=== PATIENT | female | born 1955 | race Caucasian/White ===

== ENCOUNTER 2024-10-15 09:59 | Outpatient (AMB) | payer MEDICARE, SELFPAY ==
--- NOTE | 2024-10-15 10:13 | A.OFFPC_ITS ---
Vital Signs 10/15/24 10:36 Height 5 ft 2 in Weight 143 lb BMI 26.2 BP 101/67 Blood Pressure Location Rt brachial Position Sitting Respiration 12 Pulse 88 Pulse Source Pulse Oximeter Temp 97.8 F Temp Source Oral Pulse Oximetry (%) 98 Oxygen Delivery Method Room Air Intake Visit Reasons: CPE Intake Note: New patient to establish care and cpe. [employer] Required: No Allergies acetaminophen [From Percocet] Allergy (Severe, Verified 10/15/24 11:08) Vomiting atorvastatin Allergy (Severe, Verified 10/15/24 11:08) Fainting ciprofloxacin Allergy (Severe, Verified 10/15/24 11:08) Fainting dicyclomine Allergy (Severe, Verified 10/15/24 11:08) Anaphylaxis morphine Allergy (Severe, Verified 10/15/24 11:08) Fainting oxycodone Allergy (Severe, Verified 10/15/24 11:08) Itching sertraline Allergy (Severe, Verified 10/15/24 11:08) Itching bee stings Allergy (Severe, Uncoded 10/15/24 10:32) Swelling Medication List - Last Reconciled 10/15/24 by Jody Lopes, [employer] albuterol sulfate 90 mcg/actuation inhalation kvapgrhjwcx-okuhsrqdz-mluampim 100-62.5-25 mcg (Trelegy Ellipta) 1 ea inhalation DAILY hyoscyamine sulfate 0.125 mg PO BID-QID PRN ibuprofen 200 mg PO Q6H lansoprazole 30 mg PO BID ondansetron 4 mg PO Q6-8H PRN pantoprazole 40 mg PO BID rosuvastatin 20 mg PO BEDTIME sucralfate mL PO Tobacco use date assessed: 10/15/24 Fall risk assessment: 2 + Falls in past year Last assessed Fall Risk: 10/15/24 Dental Screening Dental Screen Date: 10/15/24 Did you have a dental visit in the last 12 months?: No Did you have a dental problem in the last 6 months where you did not have access to dental care?: No Was dental information given to patient?: Patient has dentist HPI HPI Comments History of Present Illness Details 69 y/o F with HLD, GERD, COPD/Emphysema, GERD, chronic lumbar radiculopathy, hiatal hernia with esophagitis, Hx of PUD, AVI, Former smoker, bilat pulm nodules, mild CAD, osteoporosis, recurrent UTI SurgHx: coronary angiogram 2018, partial hysterectomy still has cervix and ovaries FHx: SocHx: Lives alone, dtr is point of contact; has services in the home Health Maintenance: Colon: 2021 + polyp, repeat 5 years EGD 2022 hiatal hernia, esophagitis Mammo 11/2023 abnormal Dx L normal, repeat 1 year DEXA PAP EDI ANALYST exam 12/2022 Vaccines: Shingles, PCV x2, Tdap 2022 AAA screen EKG: Lung ca screening done by [facility] Echo 2023 EF 60-65%, mild calcification of AV, [place] of Care: Pulm Dr Russ Bailey - hasnt been seen in ears Cards Dr Velásquez EDI ANALYST Here [facility] to [facility] care Previous PCP: Dr Elizabeth, no records at time of visit, but i was able to get records after and review them Reports recurrent UTI, she was ff'd by Uro Dr Bailey in the past, has not ff'd w/ Uro since her residential. Thinks she has a UTI now. Emphysema/COPD/Lung nodules/Former Smoker - ff'd closely q6 mo by Dr Baron. Last consult note reviewed. CAD/HLD - on statin. Active w/ Cards. GERD/Esophagitis/Hiatal hernia/PUD: managed by GI, EGD 2022, on PPI and Carafate. Not candidate for surgery for hiatal hernia Biggest complaint today is that of L left pain which she states has been present for years; she is not a great historian. [place] all of the time. Hurts with light touch. States has never had a workup for this. I reviewed her chart and she did have Venous Duplex 2022, negative for clot and Arterial testing which was normal 10/2023. [facility]. She has not had EMG/NVC. Offered to send her to Pain mgmt, she declined, wanting work up first. Feet are always cold on both sides Multiple falls. has not gone to PT recently and does not want to. Has help in the home. Self reports of Stroke - i did not get this in the records. She reports x 2. Affecting strength on L side of body. Has been using topical diclofenac and lidocaine for L leg pain w/o relief. Exam awake alert NAD Scleras nonicteric bilat MMM RRR LS CTAB Bilat feet cool to touch. Skin intact. Her L foot and leg are so sensitive to even the slightest touch she becomes tearful. I had a hard time appreciating her pulses on this side d/t this, she could not tolerate. PP on R are present but dim. Nails intact. Strengh 4/5 LLE and LUE, states baseline s/p stroke Amb w walker, antalgic gait/limp favoring L side Poor historian, pleasant and cooperative Plan Check labs EMG/NCV LLE and Vascular imaging of bilat legs Cont all meds and care w/ care team Refer to Uro for recurrent UTI RTO in 6 weeks for AWV, sooner PRN Total time spent caring for the patient today was 90 minutes. This includes time spent before the visit reviewing the chart, time spent during the visit, and time spent after the visit on documentation, reviewing laboratory results, diagnostic imaging, medications, performing a medically necessary evaluation, counseling on diagnoses, care coordination, ordering appropriate tests, ordering appropriate medications, review of tests performed by other providers, reporting test results with the patient, communication with other healthcare providers. [facility] Medical History (Updated 10/15/24 @ 13:39 by Jody Lopes, [facility]) Arthritis Back pain COPD (chronic obstructive pulmonary disease) Edema GERD (gastroesophageal reflux disease) History of coronary angiogram (~2017) Hx of mammogram (~2023) IBS (irritable bowel syndrome) Imbalance Osteoporosis Spine disorder Stroke Swelling Surgical History (Updated 10/15/24 @ 10:51 by Adriana Soni MA) H/O: hysterectomy Hx of colonoscopy (~2021) Family History (Updated 10/15/24 @ 10:54 by Adriana Soni MA) Mother Diabetes Thyroid disorder Maternal Grandmother Breast cancer Social History (Updated 10/15/24 @ 10:39 by Adriana Soni MA) Household Members: None Both parents involved: No Caregiver staying overnight: No Housing: Apartment Are you a primary career counselor to a significant other at home: No Do you presently have visiting nurse or other home services: Yes (3 x a week) 75 years or older and lives alone: No Alcohol intake: never Patient Tobacco Use Status: Former Tobacco user Cigarette Packs Per Day: 2 Years Smoked: 48 e-Cigarette/Vaping Use: Never Used Second Hand Smoke Exposure: No Current occupational status: retired Cognitive needs: No Hearing needs: No Vision needs: Yes (wear glasses) Questionnaire PHQ-9 Over the last 2 weeks, how often have you been bothered by any of the following problems? 1. Little interest or pleasure in doing things: not at all 2. Feeling down, depressed, or hopeless: not at all 3. Trouble falling or staying asleep, or sleeping too much: nearly every day 4. Feeling tired or having little energy: not at all 5. Poor appetite or overeating: several days 6. Feeling bad about yourself - or that you are a failure or have let yourself or your family down: not at all 7. Trouble concentrating on things, such as reading the newspaper or watching television: not at all 8. Moving or speaking so slowly that other people could have noticed. Or the opposite - being so fidgety or restless that you have been moving around a lot more than usual: not at all 9. Thoughts that you would be better off or of hurting yourself in some way: not at all Total score: 4 Depression Screening Interpretation: Negative Depression Screening Done: Yes 67860 - PHQ-9 Billing: Yes Source: Developed by Drs. Presley Chaudhari, Rosario Don, Sergey Jimenez and colleagues, with an educational araceli from [email or web address]. Thrive Questionnaire Date Thrive assessed: 10/15/24 I am a: Patient What is your living situation today?: I have a steady place to live Within the past 12 months, did the food you bought not last and you didn't have the money to get more?: Never true Within the past 12 months, did you worry whether your food would run out before you got money to buy more?: Never true Do you have trouble paying for medicines?: No Do you have trouble getting transportation to medical appointments?: No Do you have trouble paying your heating and electricity bill?: No Do you have trouble taking care of your child, family member or friend?: No Do you have trouble with day-to-day activities such as bathing, preparing meals, shopping, managing finances, etc.?: No Are you currently unemployed and looking for a job?: No Are you interested in more education?: No THRIVE Score: 0 AUDIT C Alcohol Use Questionnaire (AUDIT-C) 1. How often do you have a drink containing alcohol?: Never 3. How often do you have six or more drinks on one occasion?: Never Total Score: 0 Score Reviewed/Action Taken: Yes AVI-7 AMB Questionnaire AVI-7 Date AVI - 7 assessed: 10/15/24 Feeling nervous, anxious, or on edge: 0 = Not at all Not being able to stop or control worryin = Several days Worrying too much about different things: 0 = Not at all Trouble relaxin = Not at all Being so restless that it is hard to sit still: 0 = Not at all Becoming easily annoyed or irritable: 0 = Not at all Feeling afraid as if something awful might happen: 1 = Several days Total AVI-7 score (0-4 normal; 5-9 mild; 10-14 moderate; 15-21 severe): 2 Source: Developed by Drs. Presley Chaudhari, Rosario Don, Sergey Jimenez and colleagues, with an educational araceli from [email or web address]. AVI-7 Assessment Billing AVI-7 Assessment Tool: AVI-7 Assessment 81749 ACT Questionnaire In the past 4 weeks, how much of the time did your asthma keep you from getting as much done at work, school or at home?: Some of the time During the past 4 weeks, how often have you had shortness of breath?: 1-2 times a week During the past 4 weeks, how often did your asthma symptoms wake you up at night or earlier than usual in the morning?: 2-3 nights a week During the past 4 weeks, how often have you had to use your rescue inhaler or nebulizer medication?: 2-3 times a week How would you rate your asthma control during the past 4 weeks?: Poorly controlled Score: 14 Physical exam (Primary Care) Vital Signs: Last Vital Signs Temp 97.8 F 10/15/24 10:36 Pulse 88 10/15/24 10:36 Resp 12 10/15/24 10:36 BP 101/67 10/15/24 10:36 Pulse Ox 98 10/15/24 10:36 Oxygen Delivery Method Room Air 10/15/24 10:36 BMI result Body Mass Index 26.2 Tobacco/Smoking Status: Tobacco use Status Tobacco use date assessed 10/15/24 10/15/24 10:14 Patient Tobacco Use Status Former Tobacco user 10/15/24 10:39 e-Cigarette/Vaping Use Never Used 10/15/24 10:39 PHQ-9: PHQ-9 Score PHQ-9: Total score 4 10/15/24 11:08 Depression Screening Interpretation: Negative Thrive Assessment: Date of Thrive Assessment Date Thrive assessed 10/15/24 10/15/24 10:15 Coding Level of Care Code New Pt Level 5 (18718) Complex EM visit Add On G2211 Diagnoses Encounter to establish care Z76.89 Mixed hyperlipidemia E78.2 Hyperlipidemia type: mixed hyperlipidemia Coronary artery disease involving [place] coronary artery of [place] heart without angina pectoris I25.10 Associated angina: without angina Coronary Disease-Associated Artery/Lesion type: [place] artery [place] vs. transplanted heart: [place] heart Dysuria R30.0 Mixed stress and urge urinary incontinence N39.46 Urinary Incontinence type: mixed stress and urge incontinence Recurrent UTI N39.0 Paresthesia of left leg R20.2 Panlobular emphysema J43.1 Emphysema type: panlobular Screening for lung cancer Z12.2 Lung nodules R91.8 Chronic lumbar radiculopathy M54.16 Hiatal hernia with gastroesophageal reflux disease and esophagitis K44.9; K21.00 CPT Codes PROLONG OUTPT/OFFICE VIS - G2212 Additional Codes AVI-7 Assessment Billing - AVI-7 Assessment Tool: AVI-7 Assessment 48863 ([id number]) PHQ-9 - 67357 - PHQ-9 Billing: Yes ([id number]) Assessment & Plan Assessment & Plan (1) Encounter to establish care: Code(s): Z76.89 - Persons encountering health services in other specified circumstances (2) HLD (hyperlipidemia): Code(s): E78.5 - Hyperlipidemia, unspecified Category: Medical Qualifiers: Hyperlipidemia type: mixed hyperlipidemia Qualified Code(s): E78.2 - Mixed hyperlipidemia (3) CAD (coronary artery disease): Comment: noted on CT of the chest negative coronary angio 2018 managed by Cards Code(s): I25.10 - Atherosclerotic heart disease of [place] coronary artery without angina pectoris Category: Medical Qualifiers: Associated angina: without angina Coronary Disease-Associated Artery/Lesion type: [place] artery [place] vs. transplanted heart: [place] heart Qualified Code(s): I25.10 - Atherosclerotic heart disease of [place] coronary artery without angina pectoris (4) Dysuria: Code(s): R30.0 - Dysuria (5) Urinary incontinence: Code(s): R32 - Unspecified urinary incontinence Category: Medical Qualifiers: Urinary Incontinence type: mixed stress and urge incontinence Qualified Code(s): N39.46 - Mixed incontinence (6) Recurrent UTI: Code(s): N39.0 - Urinary tract infection, site not specified Category: Medical (7) Paresthesia of left leg: Code(s): R20.2 - Paresthesia of skin Category: Medical (8) Emphysema of lung: Comment: managed by Dr Baron Code(s): J43.9 - Emphysema, unspecified Category: Medical Qualifiers: Emphysema type: panlobular Qualified Code(s): J43.1 - Panlobular emphysema (9) Screening for lung cancer: Comment[facility] Code(s): Z12.2 - Encounter for screening for malignant neoplasm of respiratory organs Category: Medical (10) Lung nodules: Comment: managed by dr baron Code(s): R91.8 - Other nonspecific abnormal finding of lung field Category: Medical (11) Chronic lumbar radiculopathy: Comment: affecting LLE Code(s): M54.16 - Radiculopathy, lumbar region Category: Medical (12) Hiatal hernia with gastroesophageal reflux disease and esophagitis: Comment: managed by GI Code(s): K44.9 - Diaphragmatic hernia without obstruction or gangrene; K21.00 - Gastro- esophageal reflux disease with esophagitis, without bleeding Category: Medical Plan . Orders: Orders Comprehensive Met. Panel Today N39.0 - Urinary tract infection, site not specified, R32 - Unspecified urinary incontinence Ferritin Today N39.0 - Urinary tract infection, site not specified, R32 - Unspecified urinary incontinence IRON PROFILE Today N39.0 - Urinary tract infection, site not specified, R32 - Unspecified urinary incontinence Lipid Panel Today N39.0 - Urinary tract infection, site not specified, R32 - Unspecified urinary incontinence UA CC w/rflx Micro + Cult Today N39.0 - Urinary tract infection, site not specified, R32 - Unspecified urinary incontinence NE electromyogram (EMG) Today R20.2 - Paresthesia of skin NE nerve conduction velocity Today R20.2 - Paresthesia of skin Complete Blood Count no Diff Today N39.0 - Urinary tract infection, site not specified, R32 - Unspecified urinary incontinence Hemoglobin A1c Today N39.0 - Urinary tract infection, site not specified, R32 - Unspecified urinary incontinence Microalbumin, Random (w Creat) Today N39.0 - Urinary tract infection, site not specified, R32 - Unspecified urinary incontinence TSH reflex Free T4 Today N39.0 - Urinary tract infection, site not specified, R32 - Unspecified urinary incontinence Vitamin B12 and Folate Today N39.0 - Urinary tract infection, site not specified, R32 - Unspecified urinary incontinence Vitamin D 25-OH Total Today N39.0 - Urinary tract infection, site not specified, R32 - Unspecified urinary incontinence US duplex arterial venous comp Today E78.5 - Hyperlipidemia, unspecified, I10 - Essential (primary) hypertension, I25.10 - Atherosclerotic heart disease of [place] coronary artery without angina pectoris, R20.2 - Paresthesia of skin US venous insuf bilat Today E78.5 - Hyperlipidemia, unspecified, I10 - Essential (primary) hypertension, I25.10 - Atherosclerotic heart disease of [place] coronary artery without angina pectoris, R20.2 - Paresthesia of skin Referrals Urology Referral N39.0 - Urinary tract infection, site not specified, R32 - Unspecified urinary incontinence Medications: New lidocaine 5% leave on most painful area for up to 12 hrs 1 patch topical DAILY 30 ea 12RF diclofenac sodium 1% apply to single elbow, wrist or hand; for hand includes palm/fingers/back of hand 2 grams topical QID 100 grams 12RF Patient Instructions: Walk-In Care (Urgent Care): We Make it Easy Walk-in for urgent medical issues such as: ? Seasonal Allergies ? Insect Bites ? Cough ? Diarrhea ? Acute Asthma Attacks ? Back, Knee or Joint Pain ? Ear Infection ? Fever without a Rash ? Headaches ? Nausea ? [place], Rash or Skin Irritation ? Sore Throat ? Sports Physicals ? Vomiting Most insurances are accepted. Patients do not need to be part of the [facility] to seek care at the walk-in clinic. Locations [facility] , [place] [address] ? [phone] [facility] Walk-In Care in [place] provides services to ages 18 and over. Open Monday-Monday: 8 a.m. to 5 p.m. and Monday: 9 a.m. to 3 p.m.* *Hours may vary due to staffing availability. To confirm Walk-In Care hours in [place], please call [phone]. [address] [place] [address] ? [phone] [facility] Walk-In Care in [place] provides services to ages 12 and over. Open Monday-Monday: 8 a.m. to 5 p.m. Hours may vary due to staffing availability. To confirm Walk-In Care hours in [place], please call [phone]. LABORATORY SERVICES: [facility] Lab ? Primary Location [address] [place] [address] Monday through Monday 6:00 AM ? 5:00 PM Monday 7:00 AM ? 11:00 AM* [phone] The [facility] Lab is centrally located near the front entrance of the [facility] for easy outpatient access. Convenient parking is provided for outpatients. *Hours may vary due to staffing availability. To confirm Laboratory hours for any location, please call [phone]. Offsite Location For your convenience, we offer offsite laboratory draw stations at the following locations: [address] [place] [address] ? [address], [address] Monday through Monday 7:30 AM ? 1:00 PM* [phone] *Hours may vary due to staffing availability. To confirm Laboratory hours for any location, please call [phone]. [place] ? [address] Monday through Monday 6:00 AM ? 3:30 PM* Monday 6:30 AM ? 3 PM* [phone] *Hours may vary due to staffing availability. To confirm Laboratory hours for any location, please call [phone] [place] [address] Monday through Monday 7:30 AM ? 4:00 PM* [phone] *Hours may vary due to staffing availability. To confirm Laboratory hours for any location, please call [phone]. [facility] Monday through 9:00 AM ? 4:00 PM* *Hours may vary due to staffing availability. To confirm Laboratory hours for any location, please call [phone]. Appointments are not necessary. Walk-ins are welcome. Like all the departments throughout the [facility], our Lab undergoes frequent reviews to ensure the quality and accuracy of test results, and our staff takes special pride in its status as a nationally accredited facility. Patient Portal: ONE PATIENT. ONE RECORD. BETTER CARE. [facility] has a fully integrated, cutting- edge mobile electronic health information system that has revolutionized the way we care for our patients and manage our organization. This system improves communication and coordination enabling us to provide safe, higher-quality care, and an overall positive experience for staff and patients. Our first priority, as always, is to deliver the highest quality care possible. The system is running in the background supporting that priority. This portal is for all [facility] services and practices. If you are experiencing any technical difficulties with enrolling or logging into the Patient Portal please complete the [facility] Patient Portal Technical Support Form. [facility] now offers a new secure on-line interactive tool for patients to review their health information ? ?Patient Portal. This interactive web portal will enable patients and their families to take an active role in their care by providing easy, secure access to their health information via the internet. The Patient Portal provides patients with instant access to their health information, including laboratory results, medications, allergies, demographic information, visit history, and more. In addition to managing their own care, parents and health care proxies with authorized consent will appreciate the ability to access the records of those individuals for whom they provide care. Please note: if you wish to gain access (Proxy) to another patient?s portal, you will be required to come to the Medical Records Department in person at [facility]. Both the patient giving proxy access and the proxy will need to provide photo identification and complete the appropriate authorization. The Patient Portal also allows track their appointments online. The [facility] Patient Portal also saves patients time by allowing them to submit updates to their demographic and contact information prior to their visits. Po rtal email notifications will also alert patients to any new activity on their portal, such as test results and new appointments. In order to initially enroll in the [facility] Patient Portal, you will need to enter some required information including the following: * your [facility] Medical Record number * your personal home email address * name * date of Please note: In order to enroll in the [facility] Patient Portal, we need to have your email address on file in your electronic medical record. ?The email address needs to be specific for one person (yourself) in order for your Portal enrollment to be successful. ?You can update your email address in person with our Registration staff when you are registering for a hospital visit. ?Otherwise, you will need to come to the Health Information Management (Medical Records) Department at [facility]. ?We are open from Monday ? Monday from 7:30 a.m. ? 4:30 p.m. ?You will be required to present a photo id. Once you have successfully enrolled in the Patient Portal, you will receive a one-time user id and password for the Portal, sent to your email address. ?This will allow you to log into the Patient Portal within 99 hrs and reset your own logon id and password, and define personal security questions. ?Once your permanent login and password have been set, you can log into the [facility] Patient Portal at any time via the blue button above or from the Portal Logon button on any page of the [facility] website. [facility] encourage all of our patients to enroll in Patient Portal as it presents a valuable opportunity for patients and their families to actively participate in their care and stay healthy Welcome to [facility]. ?We look forward to working with you.
[2024-10-15 10:36] VITALS: BP 101/67; PULSE 88; RESP 12; TEMP 36.6; O2SAT 98; BMI 26.2
== END 2024-10-15 11:44 | disposition home or self-care (01) ==
LOC: HO.HMCFM 09:59
PROVIDERS: PCP Nurse Practitioner Family; Visit Provider Nurse Practitioner Family
DX: E78.2 Mixed hyperlipidemia (principal); J43.1 Panlobular emphysema; Z76.89 Persons encountering health services in other specified circumstances; I25.10 Atherosclerotic heart disease of native coronary artery without angina pectoris; R30.0 Dysuria; N39.46 Mixed incontinence; N39.0 Urinary tract infection, site not specified; R20.2 Paresthesia of skin; R91.8 Other nonspecific abnormal finding of lung field; M54.16 Radiculopathy, lumbar region; K44.9 Diaphragmatic hernia without obstruction or gangrene; K21.00 Gastro-esophageal reflux disease with esophagitis, without bleeding

== ENCOUNTER → 2024-10-15 09:59 | Outpatient (BNVA) | payer MEDICARE, SELFPAY | PROVIDERS: PCP Nurse Practitioner Family; Visit Provider Nurse Practitioner Family ==

== ENCOUNTER 2024-10-15 11:34 | Outpatient (REF) | payer MEDICARE, SELFPAY ==
[2024-10-15 14:26] LABS: Hematocrit 42.7 % (37.0-47.0); Hemoglobin 13.5 g/dl (12.0-16.0); Mean Corpuscular HGB Conc 31.6 g/dl (31.0-35.0); Mean Corpuscular Hemoglobin 28.9 pg (27.0-33.0); Mean Corpuscular Volume 91.4 fL (80.0-98.0); Mean Platelet Volume 10.2 fL (9.4-12.3); Platelet Count 428 X10*3/uL (160-400); Red Blood Count 4.67 X10*6/uL (4.20-5.50); Red Cell Distribution Width 13.4 % (11.0-16.0); White Blood Count 9.6 X10*3/uL (4.8-10.8)
[2024-10-15 14:37] LABS: Estimated Average Glucose 105 mg/dL; Hemoglobin A1c % 5.3 % (<6.0)
[2024-10-15 15:00] LABS: Alanine Aminotransferase 14 U/L (0-31); Albumin Level 4.2 g/dL (3.5-5.0); Alkaline Phosphatase 77 U/L (39-117); Anion Gap 12 (12-20); Aspartate Amino Transferase 27 U/L (5-31); Bilirubin Total 0.3 mg/dL (0.0-1.0); Blood Urea Nitrogen 14 mg/dL (9-16); Calcium 9.4 mg/dL (8.4-10.2); Carbon Dioxide 25 mmol/L (22-29); Chloride 105 mmol/L (96-108); Cholesterol 253 mg/dL (<200); Estimated Glomerular Filt Rate > 60; Glucose Random 91 mg/dL (60-115); HDL Cholesterol 61 mg/dL (>40); Iron 81 mcg/dL (30-160); LDL Cholesterol Calculated 173 mg/dL (<100); Percent Iron Saturation 31 % (15-50); Potassium 4.4 mmol/L (3.3-5.1); Sodium 138 mmol/L (135-145); Total Iron Binding Capacity 258 mcg/dL (228-428); Triglycerides 97 mg/dL (<150); Unsaturated Iron Binding 177 ug/dL
[2024-10-15 15:11] LABS: Folate 8.2 ng/mL (> or = 4.0); Vitamin B12 261 pg/mL (200-900)
[2024-10-15 15:14] LABS: Ferritin 50 ng/mL (10-250); TSH reflex Free T4 0.74 uIU/mL (0.32-4.0); Vitamin D 25-OH Total 29.3 ng/mL (>30)
== END 2024-10-15 11:35 | disposition home or self-care (01) ==
LOC: HO.WFDLDS 11:34
PROVIDERS: Visit Provider Nurse Practitioner Family
DX: Z76.89 Persons encountering health services in other specified circumstances (principal); E78.2 Mixed hyperlipidemia; I25.10 Atherosclerotic heart disease of native coronary artery without angina pectoris; R30.0 Dysuria; N39.46 Mixed incontinence; N39.0 Urinary tract infection, site not specified; R20.2 Paresthesia of skin; J43.1 Panlobular emphysema; R91.8 Other nonspecific abnormal finding of lung field; M54.16 Radiculopathy, lumbar region; K44.9 Diaphragmatic hernia without obstruction or gangrene; K21.00 Gastro-esophageal reflux disease with esophagitis, without bleeding; Z79.899 Other long term (current) drug therapy; Z13.30 Encounter for screening examination for mental health and behavioral disorders, unspecified; Z13.31 Encounter for screening for depression; Z13.1 Encounter for screening for diabetes mellitus
CPT/HCPCS: 36415; 80053; 80061; 82306; 82607; 82728; 82746; 83036; 83540; 84443; 85027; 96127; 96160; 99202

== ENCOUNTER 2024-10-18 11:38 | Outpatient (REF) | payer MEDICARE, SELFPAY ==
[2024-10-18 12:06] LABS: Appearance Urine Clear; Color Urine Dark Yellow; Glucose Urine UA Negative (Negative); Leukocyte Esterase Urine Negative (Negative); Nitrite Urine Negative (Negative); Urine Blood Negative (Negative); Urine Ketones Negative (Negative); Urine Protein Negative (Neg-Trace)
[2024-10-18 12:47] LABS: Creatinine Urine 87.27 mg/dL; Microalbumin Urine < 5.0 mg/L
== END 2024-10-18 11:39 | disposition home or self-care (01) ==
LOC: HO.LNP 11:38
PROVIDERS: Visit Provider Nurse Practitioner Family
DX: N39.0 Urinary tract infection, site not specified (principal); R32 Unspecified urinary incontinence
CPT/HCPCS: 81003; 82043; 82570

== ENCOUNTER 2024-11-01 08:56 | Outpatient (REF) | payer MEDICARE, SELFPAY ==
--- NOTE | ~2024-11-01 | US_ITS ---
EXAMINATION: US LOWER EXTREMITY VENOUS (REFLUX EXAM), BILATERAL CLINICAL INFORMATION: Primary hypertension. Coronary artery disease. COMPARISON: None. TECHNIQUE: Color flow triplex imaging and compression Doppler was performed to evaluate both the deep and the superficial systems bilaterally. To evaluate the superficial system, the examination was performed in the upright position. Color-flow Doppler ultrasound and compression ultrasound were utilized. In addition, maneuvers were utilized to demonstrate reflux. FINDINGS: 1. DEEP VENOUS ULTRASOUND OF THE RIGHT LOWER EXTREMITY: Common Femoral Vein: Compressible, normal respiratory variation and augmented flow. Femoral Vein: Compressible, normal color flow and augmentation. Popliteal Vein: Compressible, normal augmentation. Deep Reflux: There is no evidence of reflux in the deep system in either the common femoral vein, superficial femoral or the popliteal vein. There is no evidence of a Barnes's cyst. 2. SUPERFICIAL ULTRASOUND WITH DOPPLER OF RIGHT LOWER EXTREMITY: GREAT SAPHENOUS VEIN: Saphenofemoral Junction: 0.7 cm; Reflux: 0 ms Proximal Thigh: 0.3 cm; Reflux: 0 ms Mid Thigh: 0.4 cm; Reflux: 0 ms Distal Thigh: 0.3 cm; Reflux: 0 ms At Knee: 0.3 cm; Reflux: 0 ms Proximal Calf: 0.2 cm; Reflux: 0 ms Mid Calf: 0.3 cm; Reflux: 0 ms Distal Calf: 0.3 cm; Reflux: 0 ms DUPLICATED MEDIAL GREAT SAPHENOUS VEIN: Diameter: 0.4 cm. Reflux: NA DUPLICATED LATERAL GREAT SAPHENOUS VEIN: Diameter: None imaged Reflux: NA SMALL SAPHENOUS VEIN: Saphenopopliteal Junction: 0.3 cm; Reflux: 0 ms Proximal: 0.2 cm; Reflux: 0 ms Distal: 0.2 cm; Reflux: 0 ms VEIN OF GIACOMINI: Size: NA Reflux: NA PERFORATORS: Location: Great saphenous vein, proximal calf. Size: 0.2 cm. Reflux: NA VARICOSITIES: Location: None imaged. Size: NA Reflux: NA 3. DEEP VENOUS ULTRASOUND OF THE LEFT LOWER EXTREMITY: Common Femoral Vein: Compressible, normal respiratory variation and augmented flow. Femoral Vein: Compressible, normal color flow and augmentation. Popliteal Vein: Compressible, normal augmentation. Deep Reflux: There is no evidence of reflux in the deep system in either the common femoral vein, superficial femoral or the popliteal vein. There is no evidence of a Barnes's cyst. 4. SUPERFICIAL ULTRASOUND WITH DOPPLER OF LEFT LOWER EXTREMITY: GREAT SAPHENOUS VEIN: Saphenofemoral Junction: 0.4 cm; Reflux: 0 ms Proximal Thigh: 0.3 cm; Reflux: 0 ms Mid Thigh: 0.2 cm; Reflux: 380 ms Distal Thigh: 0.3 cm; Reflux: 0 ms At Knee: 0.3 cm; Reflux: 0 ms Proximal Calf: 0.2 cm; Reflux: 480 ms Mid Calf: 0.2 cm; Reflux: 756 ms Distal Calf: 0.3 cm; Reflux: 0 ms DUPLICATED MEDIAL GREAT SAPHENOUS VEIN: Diameter: None imaged Reflux: NA DUPLICATED LATERAL GREAT SAPHENOUS VEIN: Diameter: None imaged. Reflux: NA SMALL SAPHENOUS VEIN: Saphenopopliteal Junction: 0.3 cm; Reflux: 0 ms Proximal: 0.2 cm; Reflux: 0 ms Distal: 0.2 cm; Reflux: 0 ms VEIN OF GIACOMINI: Size: 0.3 cm. Reflux: NA PERFORATORS: Location: None imaged Size: NA Reflux: NA VARICOSITIES: Location: None Imaged Size: NA Reflux: NA US/US venous insuf bilat IMPRESSION: Right: No venous insufficiency. Perforators without reflux. No gross varices. Left: Venous insufficiency, great saphenous vein at the mid thigh and below the knee to the mid calf. No gross varices. Electronically signed by: Jefry Coleman MD 11/01/2024 11:36 AM EDT
== END 2024-11-01 08:57 | disposition home or self-care (01) ==
LOC: HO.US 08:56
PROVIDERS: PCP Nurse Practitioner Family; Visit Provider Nurse Practitioner Family
DX: I87.2 Venous insufficiency (chronic) (peripheral) (principal); R20.2 Paresthesia of skin; I25.10 Atherosclerotic heart disease of native coronary artery without angina pectoris; E78.5 Hyperlipidemia, unspecified; I10 Essential (primary) hypertension
CPT/HCPCS: 93970

== ENCOUNTER → 2024-11-01 09:03 | Outpatient (BNV) | payer MEDICARE, SELFPAY | PROVIDERS: PCP Nurse Practitioner Family; Visit Provider Radiology Diagnostic Radiology | DX: I25.10 Atherosclerotic heart disease of native coronary artery without angina pectoris (principal); I11.9 Hypertensive heart disease without heart failure | CPT/HCPCS: 93970 ==

== ENCOUNTER 2024-11-14 07:25 | Outpatient (AMB) | payer MEDICARE, SELFPAY ==
--- NOTE | 2024-11-14 07:32 | MHC.OFFVIS ---
Intake Visit Reasons: recurrent UTI Intake Note: New Patient presents for initial visit for recurrent uti Urology Medications: none Blood Thinner: none PVR: 2ml's Liquid Loader Required: No Accompanied by: Self / Same As Patient Allergies atorvastatin Allergy (Severe, Verified 11/14/24 23:10) Fainting ciprofloxacin Allergy (Severe, Verified 11/14/24 23:10) Fainting dicyclomine Allergy (Severe, Verified 11/14/24 23:10) Anaphylaxis morphine Allergy (Severe, Verified 11/14/24 23:10) Fainting oxycodone Allergy (Severe, Verified 11/14/24 23:10) Itching sertraline Allergy (Severe, Verified 11/14/24 23:10) Itching acetaminophen (From Percocet) Allergy (Verified 11/14/24 23:10) Vomiting bee stings Allergy (Severe, Uncoded 11/14/24 23:10) Swelling Medication List - Last Reconciled 11/14/24 by GENIE Salinas- acetaminophen 325 mg PO QID PRN albuterol sulfate 90 mcg/actuation inhalation diclofenac sodium 1% 2 grams topical QID estradiol 0.01%(0.1mg/gram) Apply pea-sized to urethra daily x1 month and then 3 times per week thereafter 90 days bvdjetctizf-tmchtdqnn-jgerlmyl 100-62.5-25 mcg (Trelegy Ellipta) 1 ea inhalation DAILY hyoscyamine sulfate 0.125 mg PO BID-QID PRN ibuprofen 200 mg PO Q6H lansoprazole 30 mg PO BID lidocaine 5% 1 patch topical DAILY mirabegron ER (Myrbetriq) 25 mg PO DAILY 30 days ondansetron 4 mg PO Q6-8H PRN pantoprazole 40 mg PO BID rosuvastatin 40 mg PO DAILY sucralfate mL PO HPI Comments Details: Regla is a 69 year old female patient of [facility]. She has a past medical history of GERD, irritable bowel syndrome, spine disorder, osteoporosis, arthritis, stroke, and COPD. She presents to the office today as a new patient for ongoing lower urinary tract symptoms she has been experiencing for many years. In discussion with the patient today she reports having followed up with Dr. Jessie Bailey for many years for her mixed urinary incontinence. She describes what sounds like having had urodynamics in the past and recommendations were made for Botox however she did not wish to proceed with this intervention. She reports she continues to experience recurrent urinary tract infections as well as episodes of mixed urinary incontinence. She is typically utilizing 2-3 Lian pads per day. She also reports episodes of nocturia 2-3 times per night. She denies hematuria, dysuria, foul smelling urine, changes to urinary stream, flank pain, fever, and or chills. When asked she does report a history of 3 vaginal births in the past. She does report 2 out of the 3 were larger babies. Labors were uneventful. We did discussed at length potential causes of lower urinary tract symptoms as well as recurrent urinary tract infections. We discussed further treatment options and risks and benefits of these treatment options. In office urinalysis results reviewed with the patient today. PVR 2 mL. We did discuss obtaining retroperitoneal ultrasound for further assessment evaluation. We also discussed signing medical release form to obtain previous urology records for continuity of care. All questions were answered. She otherwise offers no other issues or concerns at this time. [facility] Medical History History of coronary angiogram (~2017) Imbalance GERD (gastroesophageal reflux disease) IBS (irritable bowel syndrome) Back pain Spine disorder Edema Swelling Osteoporosis Arthritis Stroke COPD (chronic obstructive pulmonary disease) Hx of mammogram (~2023) Surgical History Hx of colonoscopy (~2021) H/O: hysterectomy Family History Mother Diabetes Thyroid disorder Maternal Grandmother Breast cancer Social History Household Members: None Both parents involved: No Caregiver staying overnight: No Housing: Apartment Are you a primary home care manager to a significant other at home: No Do you presently have visiting nurse or other home services: Yes (3 x a week) 75 years or older and lives alone: No Alcohol intake: never Patient Tobacco Use Status: Former Tobacco user Cigarette Packs Per Day: 2 Years Smoked: 48 e-Cigarette/Vaping Use: Never Used Second Hand Smoke Exposure: No Current occupational status: retired Cognitive needs: No Hearing needs: No Vision needs: Yes (wear glasses) Review of Systems Const All systems reviewed & are unremarkable except as noted in HPI and below Physical Exam Const General: cooperative, comfortable, no acute distress, well developed, alert and awake Orientation/consciousness: patient oriented x3 Limitations: ambulation with walker HEENT Head: Yes normal to inspection, Yes normocephalic and Yes atraumatic Ears: hearing grossly normal bilaterally Eyes General: appearance normal, both eyes and all related structures Neck Neck: Yes normal visual inspection and Yes trachea midline Chest Chest palpation & inspection: normal inspection of the chest Resp Effort & Inspection: normal respiratory effort and able to speak in complete sentences Cardio Rate: regular rate GI Inspection: Yes normal to inspection General: Yes no CVA tenderness Back/Spine/Pelvis Back: no CVA tenderness Skin General skin exam: no rashes or lesions noted Neuro General: patient oriented x3 Extrem General: Yes normal to inspection Psych Appearance: grossly normal and well kempt Mental Status: mental status grossly normal Speech and movement: Normal speech and movement present and Clear speech present Affect: normal affect Attitude: cooperative Thought process: Normal thought process present Thought content: Normal thought content present Insight: Fair insight present (Psych) Judgement: Fair judgement present (Psych) Office Procedures Post Void Residual Post Residual Void Post Void Residual (PVR): 2 67547-Mylz Void Residual by ultrasound Results AMB Urinalysis, Automated UA Leukoctes 0 Yvonne/uL Last Edit by Arleth Rico CCM on 11/14/24 07:56 UA Nitrite Last Edit by Arleth Rico [facility] on 11/14/24 07:56 UA Urobilinogen 0.2 mg/dL Last Edit by Arleth Rico [facility] on 11/14/24 07:56 UA Protein 0 mg/dL Last Edit by Arleth Rico [facility] on 11/14/24 07:56 UA pH 7.0 Last Edit by Arleth Rico [facility] on 11/14/24 07:56 UA Blood 0 Yinka/uL Last Edit by Arleth Rico [facility] on 11/14/24 07:56 UA Specific Elora 1.010 Last Edit by Arleth Rico [facility] on 11/14/24 07:56 UA Ketone Last Edit by Arleth Rico [facility] on 11/14/24 07:56 UA Bilirubin 0 mg/dL Last Edit by MIKE Reich on 11/14/24 07:56 UA Glucose 0 mg/dL Last Edit by MIKE Reich on 11/14/24 07:56 Results Reviewed Results Reviewed: Laboratory Last Values Urine pH (Auto) 7.0 11/14/24 07:54 Specific Elora (Auto) 1.010 11/14/24 07:54 Urine Protein (Auto) 0 mg/dL 11/14/24 07:54 Glucose (UA)(Auto) 0 mg/dL 11/14/24 07:54 Urine Blood (Auto) 0 Yinka/uL 11/14/24 07:54 Urine Bilirubin (Auto) 0 mg/dL 11/14/24 07:54 Urine Urobilinogen (Auto) 0.2 mg/dL 11/14/24 07:54 Leukocyte Esterase (Auto) 0 Yvonne/uL 11/14/24 07:54 Assessment & Plan Assessment & Plan (1) Urinary incontinence, mixed: Code(s): N39.46 - Mixed incontinence Category: Medical (2) Recurrent urinary tract infection: Code(s): N39.0 - Urinary tract infection, site not specified Category: Medical Plan In office urinalysis results reviewed the patient today; as noted above. PVR 2 mL. We discussed potential causes of lower urinary tract symptoms she is experiencing as well as recurrent urinary tract infections; we discussed further treatment options and risks and benefits of these treatment options. Start Estrace cream as discussed and prescribed. Start Myrbetriq as discussed and prescribed. We discussed signing medical release form to obtain previous urology records for continuity of care. Will obtain retroperitoneal ultrasound for further assessment evaluation. Discussed UTI prevention with D mannose supplement, vitamin-C, increasing fluid intake, behavioral therapy with timed voiding, perineal hygiene and postcoital voiding, and management of constipation with stool softeners and increased fiber intake. Follow-up in 1-3 months with imaging and PVR; or sooner with any issues, concerns, and or questions. Orders: Orders US retroperitoneal comp Today N39.0 - Urinary tract infection, site not specified, N39.46 - Mixed incontinence AMB Urinalysis Automated Today Z13.9 - Encounter for screening, unspecified AMB Post Void Residual by ultrasound Today N39.0 - Urinary tract infection, site not specified Medications: New estradiol 0.01%(0.1mg/gram) Apply pea-sized to urethra daily x1 month and then 3 times per week thereafter 42.5 grams 3RF 90 days N39.0 - Urinary tract infection, site not specified, N95.2 - Postmenopausal atrophic vaginitis mirabegron ER (Myrbetriq) 25 mg PO DAILY 30 tabs 3RF 30 days R35.1 - Nocturia Patient Instructions: The patient had an opportunity to ask questions regarding the treatment plan. All questions were answered. Physical exam, labs, and imaging were discussed and reviewed in detail. As well as risks, benefits, and discussion of treatment choices. No major barriers to understanding were identified. The patient expressed understanding and agreement with the above treatment plan. The patient was made aware they should contact our office by phone for worsening of their current condition, the appearance of new symptoms, or with any questions or concerns. Compliance is encouraged with any medications and follow up testing that is ordered. It is a privilege to be allowed the opportunity to participate in? your urological care.? Again, if you have any questions or concerns If you have any questions or concerns please do not hesitate to contact me. The office is [phone]. This note is constructed using voice recognition software. While every effort has been made to ensure accuracy oriental rug stretcher errors may have been included. Yours sincerely, ROD Salinas Scribe Plan - Not visible on output: The patient had an opportunity to ask questions regarding the treatment plan. All questions were answered. Physical exam, labs, and imaging were discussed and reviewed in detail. As well as risks, benefits, and discussion of treatment choices. No major barriers to understanding were identified. The patient expressed understanding and agreement with the above treatment plan. The patient was made aware they should contact our office by phone for worsening of their current condition, the appearance of new symptoms, or with any questions or concerns. Compliance is encouraged with any medications and follow up testing that is ordered. It is a privilege to be allowed the opportunity to participate in? your urological care.? Again, if you have any questions or concerns If you have any questions or concerns please do not hesitate to contact me. The office is [phone]. This note is constructed using voice recognition software. While every effort has been made to ensure accuracy oriental rug stretcher errors may have been included. Yours sincerely, GENIE Salinas-BC Coding Level of Care Code New Pt Level 4 (65712) Diagnoses Urinary incontinence, mixed N39.46 Recurrent urinary tract infection N39.0 CPT Codes Post Residual Void - PVR CPT Code: 46553-Vmbg Void Residual by ultrasound ([id number])
== END 2024-11-14 08:15 | disposition home or self-care (01) ==
LOC: HO.HUSH 07:26
PROVIDERS: PCP Nurse Practitioner Family; Visit Provider Nurse Practitioner Family
DX: N39.46 Mixed incontinence (principal); N39.0 Urinary tract infection, site not specified; Z13.9 Encounter for screening, unspecified
CPT/HCPCS: 99204

== ENCOUNTER → 2024-11-14 07:25 | Outpatient (BNVA) | payer MEDICARE, SELFPAY | PROVIDERS: PCP Nurse Practitioner Family; Visit Provider Nurse Practitioner Family | DX: N39.46 Mixed incontinence (principal); R35.1 Nocturia | CPT/HCPCS: 51798; 81003; 99202 ==

== ENCOUNTER 2024-12-02 12:54 | Outpatient (AMB) | payer MEDICARE, SELFPAY ==
--- NOTE | 2024-12-02 12:57 | A.OFFPC_ITS ---
Intake Visit Reasons: 6-8 WEEKS 30 MIN SAWV 30 MIN Allergies atorvastatin Allergy (Severe, Verified 11/14/24 23:10) Fainting ciprofloxacin Allergy (Severe, Verified 11/14/24 23:10) Fainting dicyclomine Allergy (Severe, Verified 11/14/24 23:10) Anaphylaxis morphine Allergy (Severe, Verified 11/14/24 23:10) Fainting oxycodone Allergy (Severe, Verified 11/14/24 23:10) Itching sertraline Allergy (Severe, Verified 11/14/24 23:10) Itching acetaminophen (From Percocet) Allergy (Verified 11/14/24 23:10) Vomiting bee stings Allergy (Severe, Uncoded 11/14/24 23:10) Swelling Tobacco use date assessed: 10/15/24 Dental Screening Dental Screen Date: 10/15/24 [facility] Medical History History of coronary angiogram (~2017) Imbalance GERD (gastroesophageal reflux disease) IBS (irritable bowel syndrome) Back pain Spine disorder Edema Swelling Osteoporosis Arthritis Stroke COPD (chronic obstructive pulmonary disease) Hx of mammogram (~2023) Surgical History Hx of colonoscopy (~2021) H/O: hysterectomy Family History Mother Diabetes Thyroid disorder Maternal Grandmother Breast cancer Social History Household Members: None Both parents involved: No Caregiver staying overnight: No Housing: Apartment Are you a primary home care attendant to a significant other at home: No Do you presently have visiting nurse or other home services: Yes (3 x a week) 75 years or older and lives alone: No Alcohol intake: never Patient Tobacco Use Status: Former Tobacco user Cigarette Packs Per Day: 2 Years Smoked: 48 e-Cigarette/Vaping Use: Never Used Second Hand Smoke Exposure: No Current occupational status: retired Cognitive needs: No Hearing needs: No Vision needs: Yes (wear glasses) Questionnaire Thrive Questionnaire Date Thrive assessed: 10/15/24 AVI-7 AMB Questionnaire AVI-7 Date AVI - 7 assessed: 10/15/24 Source: Developed by Drs. Presley Chaudhari, Rosario Don, Sergey Jimenez and colleagues, with an educational araceli from [employer]). Physical exam (Primary Care) Tobacco/Smoking Status: Tobacco use Status Tobacco use date assessed 10/15/24 11/04/24 15:30 Patient Tobacco Use Status Former Tobacco user 11/04/24 15:30 e-Cigarette/Vaping Use Never Used 11/04/24 15:30 Thrive Assessment: Date of Thrive Assessment Date Thrive assessed 10/15/24 11/04/24 15:30 Coding
--- NOTE | 2024-12-02 12:58 | A.OFFVIS_ITS ---
Intake Vital Signs 12/02/24 13:04 Height 5 ft 3 in Weight 146 lb 2 oz BMI 25.9 BP 118/67 Blood Pressure Location Rt brachial Position Sitting Respiration 12 Pulse 78 Pulse Source Pulse Oximeter Temp 97.2 F Temp Source Oral Pulse Oximetry (%) 99 Oxygen Delivery Method Room Air Intake Visit Reasons: 6-8 WEEKS 30 MIN SAWV 30 MIN Intake Note: AWV Public Service Representative Required: No Allergies atorvastatin Allergy (Severe, Verified 12/02/24 13:18) Fainting ciprofloxacin Allergy (Severe, Verified 12/02/24 13:18) Fainting dicyclomine Allergy (Severe, Verified 12/02/24 13:18) Anaphylaxis morphine Allergy (Severe, Verified 12/02/24 13:18) Fainting oxycodone Allergy (Severe, Verified 12/02/24 13:18) Itching sertraline Allergy (Severe, Verified 12/02/24 13:18) Itching acetaminophen (From Percocet) Allergy (Verified 12/02/24 13:18) Vomiting bee stings Allergy (Severe, Uncoded 12/02/24 12:59) Swelling Medication List - Last Reconciled 12/02/24 by Jody Lopes, SOCIAL MEDIA CONTENT MANAGER- acetaminophen 325 mg PO QID PRN albuterol sulfate 90 mcg/actuation inhalation diclofenac sodium 1% 2 grams topical QID estradiol 0.01%(0.1mg/gram) Apply pea-sized to urethra daily x1 month and then 3 times per week thereafter 90 days tsbtjonlhpi-rcnazxrlb-tqgbghgh 100-62.5-25 mcg (Trelegy Ellipta) 1 ea inhalation DAILY hyoscyamine sulfate 0.125 mg PO BID-QID PRN ibuprofen 200 mg PO Q6H lansoprazole 30 mg PO BID lidocaine 5% 1 patch topical DAILY mirabegron ER (Myrbetriq) 25 mg PO DAILY 30 days ondansetron 4 mg PO Q6-8H PRN pantoprazole 40 mg PO BID rosuvastatin 40 mg PO DAILY sucralfate mL PO Do you need a note to return to daycare/school/sports/work: No HPI HPI Comments History of Present Illness Details Here today for AWV. The Medicare Annual Wellness Visit (AWV) is a yearly appointment with a health professional to identify health risks and help reduce them and to create or update a personalized prevention plan. During a Medicare AWV, health professionals should also review any current opioid prescriptions, detect any cognitive impairment, and establish or update medical and family history. 69 y/o F with HLD, GERD, COPD/Emphysema, GERD, chronic lumbar radiculopathy, hiatal hernia with esophagitis, Hx of PUD, AVI, Former smoker, bilat pulm nodules, mild CAD, osteoporosis, recurrent UTI SurgHx: coronary angiogram 2017, partial hysterectomy still has cervix and ovaries FHx: Y SocHx: Lives alone, dtr is point of contact; has services in the home Health Maintenance: Colon: 2021 + polyp, repeat 5 years EGD 2022 hiatal hernia, esophagitis Mammo 11/2023 abnormal Dx L normal, repeat 1 year, New order placed [place] [facility] : ordered today; hx of osteoporosis PAP PROFESSIONAL APPLICATION DESIGNER exam 12/2022 Vaccines: Shingles, PCV x2, Tdap 2022 AAA screen: NA EKG: done today WNL Lung ca screening done by [facility] Echo 2023 EF 60-65%, mild calcification of AV, [place] of Care: Pulm Dr Baron GI Dr Mercado [facility] [place] Velásquez not active PROFESSIONAL APPLICATION DESIGNER Visual Acuity: glasses, last exam 1 year ago, will schedule a fu this year Hearing Screening: no concerns ACP: HCP form provided today; MOLST completed today. Full code. Dietary/Nutrition/Exercise Edu provided: Y During the course of the visit the patient was educated and counseled about appropriate screening and preventative services. Patient instructions were provided to the patient in written or electronic format. I have reviewed and verified the above information. History of Present Illness - The patient is a 69-year-old female pr esenting for a Medicare annual wellness visit. Recurrent UTI, active w/ [facility]. New meds started. Emphysema/COPD/Lung nodules/Former Smoker - ff'd closely q6 mo by Dr Baron. CAD/HLD - on statin which was increased by me 10/2024 due to LDL not at goal. Active w/ [facility]. GERD/Esophagitis/Hiatal hernia/PUD: managed by GI, EGD 2022, on PPI and Carafate. Not candidate for surgery for hiatal hernia - Experienced one fainting episode due t o heat, resolved with hydration. - Awaiting follow-up with vascular docto r due to rescheduling. - Normal EKG. - Utilizes a walker, no recent falls exc luding the fainting episode. Chronic left leg pain which she states has been present for years; . [place] all of the time. Hurts with light touch. States has never had a workup for this. I reviewed her chart and she did have Venous Duplex 2022, negative for clot and Arterial testing which was normal 10/2023. [facility]. Feet are always cold on both sides. EMG/NCV pending. - Current medications: Tylenol, Albutero l, diclofenac, estrace cream, Trelegy, hyoscyamine, ibuprofen, lansoprazole, lidocaine, Zofran, pantoprazole, rosuvastatin Social History - Lives independently and uses a walker for mobility. - Engaged in family activities, such as attending weddings. - Has healthcare workers assisting with house cleaning and grocery shopping. - Drives independently and has active so cial interactions, e.g., dining out with friends. - Past smoker; currently does not smoke or consume alcohol. Health Maintenance - Scheduled for mammography, noted with prior history of left breast abnormality. - Bone density examination due to osteop orosis history. - Ensures regular hydration, prompted by a previous fainting episode. - Maintaining cholesterol with prescribe d medication adjustments. Review of Systems - Cardiovascular: Denies chest pain, pal pitations. - Respiratory: Denies shortness of breat h at rest. Reports a history of COPD and emphysema. - Gastrointestinal: Reports GERD, hiatal hernia. - Musculoskeletal: Reports chronic lumba r radiculopathy. - Neurological: Reports fainting episode due to heat, no further episodes noted. - Psychological: Denies mood problems; w as screened for generalized anxiety disorder. - Genitourinary: Reports history of recu rrent UTIs. Physical Exam General: Well developed, well nourished, in no acute distress. Appears stated age. Head: Normocephalic, atraumatic. Eyes: Pupils are equal, round and reactive to light and accommodation. Conjunctivae are clear. Vision grossly normal. Ears: TMs clear AU, EACS WNL Nose: Patent, without discharge. Neck: Supple, no adenopathy or thyromegaly. Breast: Edu on SBE. History of an abnormal finding on the left breast, but recent imaging was normal. Regular mammogram and diagnostic imaging of the left breast ordered. Lungs: Clear to auscultation bilaterally. No rales, rhonchi or wheeze noted. Good air flow in all valero. Heart: Regular rate and rhythm. No murmurs, click, rubs or gallops are noted. Abdomen: Bowel sounds present in all quadrants. The abdomen is soft, nontender, with no masses or organomegaly noted. No hernias are noted. : Deferred. Reviewed recommendations for routine PROFESSIONAL APPLICATION DESIGNER. Bilat feet cool to touch. Skin intact. Her L foot and leg are so sensitive to even the slightest touch she becomes tearful. I had a hard time appreciating her pulses on this side d/t this, she could not tolerate. PP on R are present but dim. Nails intact. Streeberh 4/5 LLE and LUE, states baseline s/p stroke Amb w walker, antalgic gait/limp favoring L side Extremities: No clubbing, cyanosis nor edema is noted. Patient uses a walker Neurologic: Cranial Nerves 2-12 intact. Skin: No rashes, ulcers, or lesions noted. Turgor is good. Skin color is good. Hair and nails are without abnormalities. Psych: Normal eye contact, affect and mood appropriate, and normal interactions. Patient is alert and appropriate to context. Mood appears good Results - Labs: Previous cholesterol levels elev ated. - Tests: EKG normal. - Imaging: No biopsy performed but noted area of interest on left breast previously. - Diagnostics: Previous diagnostics on l eft breast returned normal findings. Discussion Notes I discussed the patient's comprehensive health status during the wellness visit. We reviewed her past medical history, current medication regimen, and any recent changes in her health. Fisher points included reordering her mammogram and bone density assessment at [place] and the importance of regular hydration to prevent further fainting episodes. The patient was reassured about the normal EKG findings and the need to continue her medication regimen. Furthermore, we reviewed the necessity for health proxies, and I provided her with updated forms to complete regarding her healthcare proxy. We scheduled future vascular appointments and emphasized the importance of follow-up with regular health screenings, especially considering her history of osteoporosis and hyperli pidemia. Assessment and Plan 1. Chronic Obstructive Pulmonary Disease (COPD) - Continue Trelegy therapy. - Monitor respiratory symptoms. - Cont care w/ Dr Russ 2. Hyperlipidemia - Rosuvastatin 40 mg. - Fasting lipid profile 6 months 3. Gastroesophageal Reflux Disease (GERD ) - Continue lansoprazole, pantoprazole & Care w/ GI 4. Osteoporosis - Schedule bone density scan. - Advise weight-bearing exercises. 5. Generalized Anxiety Disorder - Monitor psychological health. 6. Recurrent Urinary Tract Infections - Ensure hydration. - Preventative measures. - Cont care w/ [facility] 7. Vascular Health - Follow-up scheduled along w/ imaging Cont all meds and care w/ team RTO 6 months to fu on lipids, labs 1 week before Sooner PRN Patient Instructions - Schedule and attend appointments for m ammogram and bone density tests. - Stay hydrated to avoid overheating, es pecially in warm weather. - Use your walker for safety, and avoid rushing. - Follow your prescribed medication jaxon men. - Note and record any new symptoms and r eport them promptly. - Bring completed health proxy forms to your next visit. - Get your cholesterol levels checked be fore your next appointment. Consent Patient was informed and verbally consented to the use of an ambient scribe for clinic note documentation during this visit. Total time spent caring for the patient today was 50 minutes. This includes time spent before the visit reviewing the chart, time spent during the visit, and time spent after the visit on documentation, reviewing laboratory results, diagnostic imaging, medications, performing a medically necessary evaluation, counseling on diagnoses, care coordination, ordering appropriate tests, ordering appropriate medications, review of tests performed by other providers, reporting test results with the patient, communication with other healthcare providers. [facility] Medical History History of coronary angiogram (~2017) Imbalance GERD (gastroesophageal reflux disease) IBS (irritable bowel syndrome) Back pain Spine disorder Edema Swelling Osteoporosis Arthritis Stroke COPD (chronic obstructive pulmonary disease) Hx of mammogram (~2023) Surgical History Hx of colonoscopy (~2021) H/O: hysterectomy Family History Mother Diabetes Thyroid disorder Maternal Grandmother Breast cancer Social History Household Members: None Both parents involved: No Caregiver staying overnight: No Housing: Apartment Are you a primary emergency care tech to a significant other at home: No Do you presently have visiting nurse or other home services: Yes (3 x a week) 75 years or older and lives alone: No Alcohol intake: never Patient Tobacco Use Status: Former Tobacco user Cigarette Packs Per Day: 2 Years Smoked: 48 e-Cigarette/Vaping Use: Never Used Second Hand Smoke Exposure: No Current occupational status: retired Cognitive needs: No Hearing needs: No Vision needs: Yes (wear glasses) Questionnaire Medicare Wellness Checkup What [age] your [age]?: 65-69 What gender do you identify with?: female During the past 4 weeks, how much have you been bothered by emotional problems such as feeling anxious, depressed, irritable, sad or downhearted, and blue?: not at all During the past 4 weeks, has your physical & emotional health limited your social activities with family, friends, neighbors, or groups?: not at all During the past 4 weeks, how much bodily pain have you generally had?: mild pain During the past 4 weeks, was someone available to help you if you needed & wanted help?: yes, as much as I wanted During the past 4 weeks, what was the hardest physical activity you could do for at least 2 minutes?: light Can you get to places out of walking distance without help? (For eg., can you travel alone on buses, taxis or drive your car?): Yes Can you go shopping for groceries or clothes without someone's help?: No Can you prepare your own meals?: Yes Can you do your housework without help?: No Because of any health problems, do you need the help of another person with your personal care needs such as eating, bathing, dressing or getting around the house?: No Can you handle your own money without help?: No During the past 4 weeks, how would you rate your health in general?: very good During the past 4 weeks how have things been going for you?: pretty well Are you having difficulties driving your car?: no Do you always fasten your seat belt when you are in a car?: yes, usually During past 4 weeks, have you been bothered by the following: never: Sexual problems?, Trouble eating well?, Teeth or denture problems?, Problems using the telephone? and Tiredness or fatigue? and seldom: Falling or dizzy when standing up Have you fallen 2 or more times in the past year?: No Are you a smoker?: no During the past 4 weeks, how many drinks of wine, beer, or other alcoholic beverages did you have?: no alcohol at all Do you exercise for about 20 minutes 3 or more times a week?: yes, some of the time Have you been given information to help with the following?: no: Hazards in your house that might hurt you? and no: Keeping track of your medications? How often do you have trouble taking medicines the way you have been told to take them?: I always take medicine as prescribed How confident are you that you can control & manage most of your health problems?: very confident What is your race?: White Activity of Daily Living Bathing - sponge bath, tub bath or shower: receives no assistance (gets in/out by self, if usual bathing means Dressing - getting clothes from closets & drawers, including inner/outer garments & fasteners.: gets clothes & gets completely dressed without help Toileting - going to the 'toilet room' for urine/bowel elimination & cleaning self/arranging clothes: goes to toilet room, cleans self, arranges clothes without help Transfer: moves in & out of bed and chair without help (may use support object) Continence: has occasional 'accidents' Feeding: feeds self without help Total Score: 0 Information obtained from: patient Using telephone: independent Traveling: independent Shopping: needs assistance Preparing meals: independent Housework: needs assistance Taking medicine: independent Managing money: independent PHQ-9 Over the last 2 weeks, how often have you been bothered by any of the following problems? 1. Little interest or pleasure in doing things: not at all 2. Feeling down, depressed, or hopeless: not at all 3. Trouble falling or staying asleep, or sleeping too much: not at all 4. Feeling tired or having little energy: not at all 5. Poor appetite or overeating: not at all 6. Feeling bad about yourself - or that you are a failure or have let yourself or your family down: not at all 7. Trouble concentrating on things, such as reading the newspaper or watching television: not at all 8. Moving or speaking so slowly that other people could have noticed. Or the opposite - being so fidgety or restless that you have been moving around a lot more than usual: not at all 9. Thoughts that you would be better off or of hurting yourself in some way: not at all Total score: 0 Depression Screening Interpretation: Negative Depression Screening Done: Yes 23710 - PHQ-9 Billing: Yes Source: Developed by Drs. Presley Chaudhari, Rosario Don, Sergey Jimenez and colleagues, with an educational araceli from [employer]. Physical Exam Vital Signs: Last Vital Signs Temp 97.2 F 12/02/24 13:04 Pulse 78 12/02/24 13:04 Resp 12 12/02/24 13:04 BP 118/67 12/02/24 13:04 Pulse Ox 99 12/02/24 13:04 Oxygen Delivery Method Room Air 12/02/24 13:04 BMI result Body Mass Index 25.9 Office Procedures EKG [id number], Complete Vision Screening Right Eye: 20/50 Left Eye: 20/40 Bilateral: 20/30 Color: Pass Corrected: Pass (wearing glasses) 03233 - Vision Screening Assessment & Plan Assessment & Plan (1) Encounter for subsequent annual wellness visit (AWV) in Medicare patient: Onset Date: ~12/02/24 Code(s): Z00.00 - Encounter for general adult medical examination without abnormal findings (2) ACP (advance care planning): Code(s): Z71.89 - Other specified counseling (3) Physician orders for life-sustaining treatment (POLST) form indicates patient wish for full code resuscitation status: Onset Date: ~12/02/24 Code(s): Z78.9 - Other specified health status (4) Abnormal mammogram of left breast: Code(s): R92.8 - Other abnormal and inconclusive findings on diagnostic imaging of breast (5) HLD (hyperlipidemia): Code(s): E78.5 - Hyperlipidemia, unspecified Qualifiers: Hyperlipidemia type: mixed hyperlipidemia Qualified Code(s): E78.2 - Mixed hyperlipidemia (6) CAD (coronary artery disease): Comment: noted on CT of the chest negative coronary angio 2018 managed by [facility] Code(s): I25.10 - Atherosclerotic heart disease of [place] coronary artery without angina pectoris Qualifiers: Coronary Disease-Associated Artery/Lesion type: [place] artery [place] vs. transplanted heart: [place] heart Associated angina: without angina Qualified Code(s): I25.10 - Atherosclerotic heart disease of [place] coronary artery without angina pectoris (7) Osteoporosis: Code(s): M81.0 - Age-related osteoporosis without current pathological fracture Qualifiers: Osteoporosis type: unspecified Presence of current pathological fracture: without current pathological fracture Qualified Code(s): M81.0 - Age- related osteoporosis without current pathological fracture (8) Recurrent UTI: Comment: [facility] Code(s): N39.0 - Urinary tract infection, site not specified (9) Paresthesia of left leg: Code(s): R20.2 - Paresthesia of skin (10) Emphysema of lung: Comment: managed by Dr Baron Code(s): J43.9 - Emphysema, unspecified Qualifiers: Emphysema type: panlobular Qualified Code(s): J43.1 - Panlobular emphysema (11) Screening for lung cancer: [facility] scan stable. Code(s): Z12.2 - Encounter for screening for malignant neoplasm of respiratory organs (12) Lung nodules: Comment: managed by dr baron Code(s): R91.8 - Other nonspecific abnormal finding of lung field (13) Chronic lumbar radiculopathy: Comment: affecting LLE Code(s): M54.16 - Radiculopathy, lumbar region (14) Hiatal hernia with gastroesophageal reflux disease and esophagitis: Comment: managed by GI Code(s): K44.9 - Diaphragmatic hernia without obstruction or gangrene; K21.00 - Gastro- esophageal reflux disease with esophagitis, without bleeding (15) Venous insufficiency of left lower extremity: Onset Date: ~11/01/24 Comment: US/ venous insuf bilat IMPRESSION: Right: No venous insufficiency. Perforators without reflux. No gross varices. Left: Venous insufficiency, great saphenous vein at the mid thigh and below the knee to the mid calf. No gross varices. Code(s): I87.2 - Venous insufficiency (chronic) (peripheral) (16) Urinary incontinence, mixed: Comment: [facility] Code(s): N39.46 - Mixed incontinence Plan , Orders: Orders MM tomosynthesis screening BI Today R92.8 - Other abnormal and inconclusive findings on diagnostic imaging of breast, Z12.31 - Encounter for screening mammogram for malignant neoplasm of breast MM diagnostic mammo unilat LT Today R92.8 - Other abnormal and inconclusive findings on diagnostic imaging of breast XR DEXA axial skeleton Today Z13.820 - Encounter for screening for osteoporosis Lipid Panel 6 Months E78.2 - Mixed hyperlipidemia, I25.10 - Atherosclerotic heart disease of [place] coronary artery without angina pectoris Patient Instructions: Patient Instructions - Schedule and attend appointments for mammogram and bone density tests. - Stay hydrated to avoid overheating, especially in warm weather. - Use your walker for safety, and avoid rushing. - Follow your prescribed medication regimen. - Note and record any new symptoms and report them promptly. - Bring completed health proxy forms to your next visit. - Get your cholesterol levels checked before your next appointment. - Return to office in 6 months, labs 1 week before Health screenings for women You should visit your health care provider from time to time, even if you are healthy. The purpose of these visits is to: Screen for medical issues Assess your risk for future medical problems Encourage a healthy lifestyle Update vaccinations and other preventive care services Help you get to know your provider in case of an illness Information Even if you feel fine, you should still see your provider for regular checkups. These visits can help you avoid problems in the future. For example, the only way to find out if you have high blood pressure is to have it checked regularly. High blood sugar and high cholesterol levels also may not have any symptoms in the early stages. A simple blood test can check for these conditions. There are specific times when you should see your provider or receive specific health screenings. The [place] Preventive Services Task Force publishes a list of recommended screenings. Below are screening guidelines for women ages 18 to 39. BLOOD PRESSURE SCREENING Your blood pressure should be checked at least once every 3 to 5 years if: Your blood pressure is in the normal range (top number less than 120 mm Hg and bottom number less than 80 mm Hg) You don't have risk factors for high blood pressure Ask your provider if you need your blood pressure checked more often if: The top number is 120 to 129 mm Hg or the bottom number is 70 to 79 mm Hg You have diabetes, heart disease, kidney problems, are overweight, or have certain other health conditions You have a first-degree relative with high blood pressure You are Black You had high blood pressure during a If the top number is 130 mm Hg or greater or the bottom number is 80 mm Hg or greater, this is considered stage 1 hypertension. Schedule an appointment with your provider to learn how you can reduce your blood pressure. Watch for blood pressure screenings in your area. Ask your provider if you can stop in to have your blood pressure checked. BREAST CANCER SCREENING Experts do not agree about the benefits of breast self-exams in finding breast cancer or saving lives. Talk to your provider about what is best for you. A screening mammogram is not recommended for most women under age 40. Your provider may discuss and recommend mammograms, MRI scans, or ultrasounds if you have an increased risk for breast cancer, such as: A mother or sister who had breast cancer at a young age (most often starting screening earlier than the age the close relative was diagnosed) You carry a high-risk genetic marker CERVICAL CANCER SCREENING Cervical cancer screening should start at age 21 years unless your provider advises otherwise. After the first test: Women ages 21 through 29 should have a Pap test every 3 years. Exoprts do not agree on whether HPV testing is recommended for this age group. Women ages 30 through 65 should be screened with either a Pap test every 3 years or the HPV test every 5 years or both tests every 5 years (called cotesting ). Women who have been treated for precancer (cervical dysplasia) should continue to have Pap tests for 20 years after treatment or until age 65, whichever is longer. If you have had your uterus and cervix removed (total hysterectomy), and you have not been diagnosed with cervical cancer or precancer (high grade cervical neoplasia), you do not need cervical cancer screening. CHOLESTEROL SCREENING Cholesterol screening should begin at: Age 45 for women with no known risk factors for coronary heart disease Age 20 for women with known risk factors for coronary heart disease Repeat cholesterol screening should take place: Every 5 years for women with normal cholesterol levels More often if changes occur in lifestyle (including weight gain and diet) More often if you have diabetes, heart disease, kidney problems, or certain other conditions DIABETES SCREENING You should be screened for diabetes starting at age 35 and then repeated every 3 years if you have no risk factors for diabetes. Screening may need to start earlier and be repeated more often if you have other risk factors for diabetes, such as: You have a first degree relative with diabetes. You are overweight or have obesity. You have high blood pressure, prediabetes, or a history of heart disease. Screening for diabetes should be done if you are planning to become and you are overweight and have other risk factors such as high blood pressure. DENTAL EXAM Go to the dentist once or twice every year for an exam and cleaning. Your dentist will evaluate if you need more frequent visits. EYE EXAM Have an eye exam every 5 to 10 years before age 40. If you have vision problems, have an eye exam every 2 years or more often if recommended by your provider. You should have an eye exam that includes an examination of your retina (back of your eye) at least every year if you have diabetes. IMMUNIZATIONS Commonly needed vaccines include: Flu shot: get one every year. COVID-19 vaccine: ask your provider what is best for you. Tetanus-diphtheria and acellular pertussis (Tdap) vaccine: have one at or after age 19 as one of your tetanus-diphtheria vaccines if you did not receive it as an adolescent. Tetanus-diphtheria: have a booster (or Tdap) every 10 years. Varicella vaccine: receive 2 doses if you never had chickenpox or the varicella vaccine. Hepatitis B vaccine: receive 2, 3, or 4 doses, depending on your exact circumstances. Measles, mumps, and rubella (MMR) vaccine: receive 1 to 2 doses if you are not already immune to MMR. Your provider can tell you if you are immune. Ask your provider about the human papillomavirus (HPV) vaccine if: You have not received the HPV vaccine in the past You have not completed the full vaccine series (you should catch up on this shot) Ask your provider if you should receive other immunizations if you have certain health problems that increase your risk for some diseases such as pneumonia. INFECTIOUS DISEASE SCREENING Women who are sexually active should be screened for chlamydia and gonorrhea up until age 25. Women 25 years and older should be screened for chlamydia and gonorrhea if at high risk. Screening for hepatitis C: All adults ages 18 to 79 should get a one-time test for hepatitis C. people should be screened at every . Screening for human immunodeficiency virus (HIV): All people ages 15 to 65 should get a one-time test for HIV. Depending on your lifestyle and medical history, you may also need to be screened for infections such as syphilis and HIV, as well as other infections. PHYSICAL EXAM All adults should visit their provider from time to time, even if they are healthy. The purpose of these visits is to: Screen for disease Assess your risk of future medical problems Encourage a healthy lifestyle Update your vaccinations and other preventive care services Maintain a relationship with a provider in case of an illness Your height, weight, and BMI should be checked at every exam. During your exam, your provider may ask you about: Depression and anxiety Diet and exercise Alcohol and tobacco use Safety issues, such as using seat belts, smoke detectors, and intimate partner violence Your medicines and risk for interactions SKIN SELF-EXAM Your provider may check your skin for signs of skin cancer, especially if you're at high risk, such as if you: Have had skin cancer before Have close relatives with skin cancer Have a weakened immune system OTHER SCREENING Talk with your provider about colon cancer screening if you have a strong family history of colon cancer or polyps, or if you have had inflammatory bowel disease or polyps yourself. Routine bone density screening of women under 40 is not recommended. Quality Reporting (2019) Adult ([facility] 138//) Smoking risk assessment performed?: Yes Patient Tobacco Use Status: Former Tobacco user Depression screening performed: Yes Screen Results: Yes Negative screen Systolic BP not done?: No BMI screening not done: No Sexual Activity Screening ([facility] 153) Sexually active?: No Immunizations (CMS 147, 117) Annual Influenza Vaccine: No (not flu season) Measles Antibody Test: No Mumps Antibody Test: No Rubella Antibody Test: No Varicella Antibody Test: No Anti Hepatitis A IgG Antigen test: No Anti Hepatitis B Virus Surface Ab test: No Fall Risk Screening ([facility] 139) Last assessed Fall Risk: 12/02/24 Fall risk assessment: No Falls in past year Dementia Assessment ([facility] 149) Cognitive assessment recorded: Yes Assessment of cognition with standardized tool: Yes (6 cit 09/02 ) Depression/Bipolar (159/160/161/177) PHQ-9: Total score: 0 Ophthalmol:Cataracts Visual Acuity (133) Visual acuity exam performed: Yes (see results ) Coding Level of Care Code Medicare Subsequent (G0439) Est Pt Level 4 (70499) Diagnoses Encounter for subsequent annual wellness visit (AWV) in Medicare patient Z00.00 ACP (advance care planning) Z71.89 Physician orders for life-sustaining treatment (POLST) form indicates patient wish for full code resuscitation status Z78.9 Abnormal mammogram of left breast R92.8 Mixed hyperlipidemia E78.2 Hyperlipidemia type: mixed hyperlipidemia Coronary artery disease involving [place] coronary artery of [place] heart without angina pectoris I25.10 Coronary Disease-Associated Artery/Lesion type: [place] artery [place] vs. transplanted heart: [place] heart Associated angina: without angina Osteoporosis without current pathological fracture, unspecified osteoporosis type M81.0 Osteoporosis type: unspecified Presence of current pathological fracture: without current pathological fracture Recurrent UTI N39.0 Paresthesia of left leg R20.2 Panlobular emphysema J43.1 Emphysema type: panlobular Screening for lung cancer Z12.2 Lung nodules R91.8 Chronic lumbar radiculopathy M54.16 Hiatal hernia with gastroesophageal reflux disease and esophagitis K44.9; K21.00 Venous insufficiency of left lower extremity I87.2 Urinary incontinence, mixed N39.46 CPT Codes Advance Care Planning - Time spent: 1-15 minutes, not on file ([id number]) EKG - CPT: 74776-[id number], Complete ([id number]) Vision Screening - Vision Screenin - Vision Screening ([id number]) Additional Codes PHQ-9 - 15430 - PHQ-9 Billing: Yes ([id number]) Advance Care Planning Advance Care Planning discussion: Exists, not on file Date of discussion: 12/02/24 Forms completed: Health Care Proxy, MOLST and Living will Time spent: 1-15 minutes, not on file
[2024-12-02 13:04] VITALS: BP 118/67; PULSE 78; RESP 12; TEMP 36.2; O2SAT 99; BMI 25.9
== END 2024-12-02 13:48 | disposition home or self-care (01) ==
LOC: HO.HMCFM 12:55
PROVIDERS: PCP Nurse Practitioner Family; Visit Provider Nurse Practitioner Family
DX: Z00.00 Encounter for general adult medical examination without abnormal findings (principal); J43.1 Panlobular emphysema; R92.8 Other abnormal and inconclusive findings on diagnostic imaging of breast; E78.2 Mixed hyperlipidemia; I25.10 Atherosclerotic heart disease of native coronary artery without angina pectoris; M81.0 Age-related osteoporosis without current pathological fracture; N39.0 Urinary tract infection, site not specified; R20.2 Paresthesia of skin; Z12.2 Encounter for screening for malignant neoplasm of respiratory organs; R91.8 Other nonspecific abnormal finding of lung field; M54.16 Radiculopathy, lumbar region; K44.9 Diaphragmatic hernia without obstruction or gangrene

== ENCOUNTER → 2024-12-02 12:54 | Outpatient (BNVA) | payer MEDICARE, SELFPAY | PROVIDERS: PCP Nurse Practitioner Family; Visit Provider Nurse Practitioner Family | DX: Z00.00 Encounter for general adult medical examination without abnormal findings (principal); E78.5 Hyperlipidemia, unspecified; K21.9 Gastro-esophageal reflux disease without esophagitis; J43.9 Emphysema, unspecified; M54.16 Radiculopathy, lumbar region; R91.8 Other nonspecific abnormal finding of lung field; I25.10 Atherosclerotic heart disease of native coronary artery without angina pectoris; M81.0 Age-related osteoporosis without current pathological fracture; F41.1 Generalized anxiety disorder; R92.8 Other abnormal and inconclusive findings on diagnostic imaging of breast; E78.2 Mixed hyperlipidemia; R20.2 Paresthesia of skin; J43.1 Panlobular emphysema; K44.9 Diaphragmatic hernia without obstruction or gangrene; K21.00 Gastro-esophageal reflux disease with esophagitis, without bleeding; I87.2 Venous insufficiency (chronic) (peripheral); Z71.89 Other specified counseling; Z87.440 Personal history of urinary (tract) infections; Z78.9 Other specified health status | CPT/HCPCS: 93005; 96127; 99212 ==

== ENCOUNTER 2024-12-24 08:23 | Outpatient (REF) | payer MEDICARE, SELFPAY ==
--- NOTE | 2024-12-24 08:26 | EMG_ITS ---
Patient Complaints: Paresthesia of left leg Left tibial and peroneal motor studies were performed left superficial peroneal and sural sensory studies were performed tibial H-reflex was obtained and EMG needle examination was performed. Impression: [id number] axonal sensory motor peripheral neuropathy MTDD
== END 2024-12-24 08:24 | disposition home or self-care (01) ==
LOC: HO.NEURO 08:23
PROVIDERS: Visit Provider Nurse Practitioner Family
DX: R20.2 Paresthesia of skin (principal)
CPT/HCPCS: 95886; 95910

== ENCOUNTER → 2024-12-24 08:26 | Outpatient (BNV) | payer MEDICARE, SELFPAY | PROVIDERS: Visit Provider Psychiatry & Neurology Neurology | DX: G62.89 Other specified polyneuropathies (principal) | CPT/HCPCS: 95886; 95909 ==

== ENCOUNTER 2025-01-07 12:31 | Outpatient (REF) | payer MEDICARE, SELFPAY ==
--- NOTE | ~2025-01-07 | US_ITS ---
EXAMINATION: Noninvasive assessment of the bilateral lower extremities without ARTERIAL DUPLEX, ANKLE BRACHIAL INDICES (ABIs), and PULSE VOLUME RECORDINGS (PVRs). CLINICAL INFORMATION: I25.7. Atherosclerotic heart disease coronary arteries. TECHNIQUE: Duplex Doppler techniques with waveform analysis and measurement of velocities in the bilateral common femoral, profunda femoris, superficial femoral, popliteal and tibial arteries were performed. The study was performed only at rest. COMPARISON: None FINDINGS: DIRECT DUPLEX DOPPLER FINDINGS: RIGHT LEG: Common femoral artery: 136 cm/s, phasicity: Triphasic. Spectral broadening. Profunda femoris artery: 79 cm/s, phasicity: Triphasic. Spectral broadening. Superficial femoral artery (proximal): 99 cm/s, phasicity: Biphasic. Superficial femoral artery (mid): 108 cm/s, phasicity: Biphasic. Superficial femoral artery (distal): 83 cm/s, phasicity: Biphasic. Popliteal artery: 104 cm/s, phasicity: Biphasic. Posterior tibial artery: 96 cm/s, phasicity: Biphasic. Spectral broadening. Peroneal artery: 42 cm/s, phasicity: Biphasic. Anterior tibial artery: 48 cm/s, phasicity: Biphasic. Dorsalis pedis artery: 49 cm/s, phasicity:Biphasic and reversal. LEFT LEG: Common femoral artery: 120 cm/s, phasicity: Biphasic. Profunda femoris artery: 70 cm/s, phasicity: Biphasic. Spectral broadening. Superficial femoral artery (proximal): 100 cm/s, phasicity: Biphasic. Superficial femoral artery (mid): 85 cm/s, phasicity: Biphasic. Superficial femoral artery (distal): 86 cm/s, phasicity: Biphasic. Popliteal artery: 93 cm/s, phasicity: Biphasic. Posterior tibial artery: 78 cm/s, phasicity: Biphasic. Spectral broadening. Peroneal artery: 40 cm/s, phasicity: Biphasic. Spectral broadening. Anterior tibial artery: 57 cm/s, phasicity: Biphasic. Spectral broadening. Dorsalis pedis artery: 29 cm/s, phasicity: Biphasic. Spectral broadening. US/US arterial duplex LE BI IMPRESSION: Right leg: Moderate inflow disease from the superficial femoral to the dorsalis pedis arteries. Left leg: Moderate inflow disease throughout the interrogated arteries. Electronically signed by: Jefry Coleman MD 01/08/2025 01:01 PM EDT RP
== END 2025-01-07 12:32 | disposition home or self-care (01) ==
LOC: HO.US 12:31
PROVIDERS: PCP Nurse Practitioner Family; Visit Provider Nurse Practitioner Family
DX: I25.10 Atherosclerotic heart disease of native coronary artery without angina pectoris (principal); R20.2 Paresthesia of skin
CPT/HCPCS: 93925

== ENCOUNTER → 2025-01-07 12:33 | Outpatient (BNV) | payer MEDICARE, SELFPAY | PROVIDERS: PCP Nurse Practitioner Family; Visit Provider Radiology Diagnostic Radiology | DX: I70.201 Unspecified atherosclerosis of native arteries of extremities, right leg (principal); I70.202 Unspecified atherosclerosis of native arteries of extremities, left leg | CPT/HCPCS: 93925 ==

== ENCOUNTER 2025-01-28 10:37 | Outpatient (REF) | payer MEDICARE, SELFPAY ==
--- NOTE | ~2025-01-28 | US_ITS ---
CLINICAL HISTORY: N39.46 - Mixed incontinence US retroperitoneum Comparison: None provided Findings: Right kidney normal size and echotexture, 9.1 x 4.8 x 4.6 cm length. No hydronephrosis, mass or calculus. Normal color flow. Left kidney normal size and echotexture, 10.2 x 5.9 x 4.9 cm in length. Caliectasis noted, renal pelvis is not dilated, no calculus or mass. Normal color flow. Urinary bladder is unremarkable. Prevoid volume 183 mL. Postvoid volume 21 mL. Ureteral jets are visualized bilaterally Impression: 1. No acute finding. 2. Left renal caliectasis. This document has been electronically signed by: Marisol Valdez MD on 01/29/2025 12:24:46
== END 2025-01-28 10:38 | disposition home or self-care (01) ==
LOC: HO.US 10:37
PROVIDERS: PCP Nurse Practitioner Family; Visit Provider Nurse Practitioner Family
DX: N39.46 Mixed incontinence (principal); N39.0 Urinary tract infection, site not specified
CPT/HCPCS: 76770

== ENCOUNTER → 2025-01-28 10:39 | Outpatient (BNV) | payer MEDICARE, SELFPAY | PROVIDERS: PCP Nurse Practitioner Family; Visit Provider Radiology Diagnostic Radiology | DX: N28.89 Other specified disorders of kidney and ureter (principal) | CPT/HCPCS: 76770 ==

== ENCOUNTER 2025-02-06 10:31 | Outpatient (AMB) | payer MEDICARE, SELFPAY ==
[2025-02-06 10:37] VITALS: BMI 25.9
--- NOTE | 2025-02-06 10:37 | MHC.OFFVIS ---
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 Worsened over the years. Left LE is worse than the right LE. Does get cramping in the calves. 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 She reports tingling, numbness, and pain primarily in her left leg, with occasional symptoms in the right leg, persisting for years. The patient has a significant smoking history, having quit six years ago after smoking more than two packs a day. She denies diabetes and has no history of back surgery, although she experiences some back pain. She uses a walker for balance and can walk around with it, indicating some mobility despite her symptoms. Previous ultrasounds and nerve conduction tests have shown normal venous and arterial function. [facility] Medical History History of coronary angiogram (~2017) Imbalance GERD (gastroesophageal reflux disease) IBS (irritable bowel syndrome) Back pain Spine disorder Edema Swelling Osteoporosis Arthritis Stroke COPD (chronic obstructive pulmonary disease) Hx of mammogram (~2023) Surgical History Hx of colonoscopy (~2021) H/O: hysterectomy Family History Mother Diabetes Thyroid disorder Maternal Grandmother Breast cancer Social History Household Members: None Both parents involved: No Caregiver staying overnight: No Housing: Apartment Are you a primary career resource technician to a significant other at home: No Do you presently have visiting nurse or other home services: Yes (3 x a week) 75 years or older and lives alone: No Alcohol intake: never Patient Tobacco Use Status: Former Tobacco user Cigarette Packs Per Day: 2 Years Smoked: 48 e-Cigarette/Vaping Use: Never Used Second Hand Smoke Exposure: No Current occupational status: retired Cognitive needs: No Hearing needs: No Vision needs: Yes (wear glasses) Review of Systems Const All systems reviewed & are unremarkable except as noted in HPI and below Reports no additional complaints ENT Reports Normal hearing present Card Denies chest pain, Denies chest pain at rest, Denies chest pain with activity and Denies pedal edema Resp Denies cough GI Denies abdominal pain Musc Denies abnormal gait, Denies muscle cramps and Denies radiating pain into limb Skin/Breast Denies skin ulcer and Denies wounds Neuro Reports Normal hearing present and Denies abnormal gait Psych Reports no additional complaints Physical Exam Vital Signs: BMI result Body Mass Index 25.9 Const General: cooperative, healthy appearing and comfortable Orientation/consciousness: oriented to person, oriented to place and oriented to time HEENT Head: Yes normal to inspection Neck Neck: Yes normal visual inspection Carotids: no bruits Chest Chest palpation & inspection: normal inspection of the chest Resp Effort & Inspection: normal respiratory effort and able to speak in complete sentences Auscultation: clear to auscultation bilaterally, no crackles, no rales, no rhonchi and no wheezes Cardio Rate: regular rate Rhythm: regular rhythm Heart sounds: S1 normal heart sound present and S2 normal heart sound present Bruits: no carotid bruits Peripheral pulses: Peripheral pulses 2+ throughout GI Inspection: Yes normal to inspection Skin Wounds: no wounds Hair: normal Neuro General: oriented to person, oriented to place and oriented to time Cranial nerves: Yes CN's II-XII intact bilaterally and Yes Normal hearing present Cognition (Neuro): normal cognition Motor exam (neuro): 5/5 motor strength present throughout Extrem Other: venous exam: No significant superficial varicosities or spider telangiectasias, minimal edema General: No clubbing, No cyanosis and No edema Psych Appearance: grossly normal Mental Status: mental status grossly normal Speech and movement: Normal speech and movement present Results Reviewed Results Reviewed: Brief summary of venous insufficiency testing is as follows: right great saphenous vein: negative right small saphenous vein: negative right accessory vein: none present left great saphenous vein: Focally positive left calf left small saphenous vein: negative left accessory vein: none present Please note there is no evidence of any venous aneurysms or significant tortuosity 01/07/2025 - arterial testing within normal limits Assessment & Plan Assessment & Plan (1) Venous insufficiency of left lower extremity: Onset Date: ~11/01/24 Code(s): I87.2 - Venous insufficiency (chronic) (peripheral) Category: Medical Plan: I discussed with the patient that her vascular tests showed normal venous and arterial function, suggesting that her symptoms may be related to neurological issues rather than vascular problems. We talked about the possibility of further neurological evaluation to address her paresthesia and balance issues. She has had EMG testing which has been positive. May benefit from neurologic evaluation and treatment. She will follow up with us on an as-needed basis. Thank you for allowing us to assist in her care. Coding Level of Care Code Est Pt Level 4 (16624) Diagnoses Venous insufficiency of left lower extremity I87.2
== END 2025-02-06 11:02 | disposition home or self-care (01) ==
LOC: HO.HVS 10:31
PROVIDERS: PCP Nurse Practitioner Family; Visit Provider Surgery Vascular Surgery
DX: I87.2 Venous insufficiency (chronic) (peripheral) (principal)
CPT/HCPCS: 99214

== ENCOUNTER → 2025-02-06 10:31 | Outpatient (BNVA) | payer MEDICARE, SELFPAY | PROVIDERS: PCP Nurse Practitioner Family; Visit Provider Surgery Vascular Surgery | DX: I87.2 Venous insufficiency (chronic) (peripheral) (principal) | CPT/HCPCS: 99212 ==

== ENCOUNTER 2025-02-13 12:35 | Outpatient (AMB) | payer MEDICARE, SELFPAY ==
--- NOTE | 2025-02-13 12:41 | MHC.OFFVIS ---
Intake Visit Reasons: 3m follow up/ US Intake Note: patient presents today for: 3mo follow up/US urology medications: mirabegron, estradiol blood thinners: none US done: 01/29/25 today's PVR: 0mls Prototype Machine Operator Required: No Accompanied by: Friend Allergies atorvastatin Allergy (Severe, Verified 02/13/25 13:01) Fainting ciprofloxacin Allergy (Severe, Verified 02/13/25 13:01) Fainting dicyclomine Allergy (Severe, Verified 02/13/25 13:01) Anaphylaxis morphine Allergy (Severe, Verified 02/13/25 13:01) Fainting oxycodone Allergy (Severe, Verified 02/13/25 13:01) Itching sertraline Allergy (Severe, Verified 02/13/25 13:01) Itching acetaminophen (From Percocet) Allergy (Verified 02/13/25 13:01) Vomiting bee stings Allergy (Severe, Uncoded 02/13/25 13:01) Swelling Medication List - Last Reconciled 02/13/25 by GENIE Salinas- acetaminophen 325 mg PO QID PRN albuterol sulfate 90 mcg/actuation inhalation diclofenac sodium 1% 2 grams topical QID estradiol 0.01%(0.1mg/gram) Apply pea-sized to urethra daily x1 month and then 3 times per week thereafter 90 days jgcehqublbu-slswsosyd-kvmfqzsv 100-62.5-25 mcg (Trelegy Ellipta) 1 ea inhalation DAILY hyoscyamine sulfate 0.125 mg PO BID-QID PRN ibuprofen 200 mg PO Q6H lansoprazole 30 mg PO BID lidocaine 5% 1 patch topical DAILY mirabegron ER (Myrbetriq) 25 mg PO DAILY 30 days ondansetron 4 mg PO Q6-8H PRN pantoprazole 40 mg PO BID rosuvastatin 40 mg PO DAILY sucralfate mL PO HPI Comments Details: Regla is a 69 year old female patient of [place] today's office visit. She has a past medical history of GERD, irritable bowel syndrome, spine disorder, osteoporosis, arthritis, stroke, and COPD. She presents to the office today for follow-up of her lower urinary tract symptoms. Of note, patient was seen approximately 3 months ago as a new patient for ongoing lower urinary tract symptoms she has been experiencing for many years at which time at which time a retroperitoneal ultrasound was ordered for further assessment evaluation in the patient was started on Myrbetriq. In discussion with the patient today she reports significant improvement in lower urinary tract symptoms with 25 mg of Myrbetriq daily. She reports she had previously been utilizing 2-3 Lian pads per day that she is no longer needing to wear. She discusses how helpful this has been. Recent retroperitoneal ultrasound results were reviewed 01/30 these are normal in size and echotexture. No hydronephrosis or renal calculi noted bilaterally. The urinary bladder is unremarkable. Postvoid bladder volume 21 mL. No acute findings per radiology report. She denies hematuria, dysuria, foul smelling urine, changes to urinary stream, flank pain, fever, and or chills. When asked she does report a history of 3 vaginal births in the past. She does report 2 out of the 3 were larger babies. Labors were uneventful. We did discussed at length potential causes of lower urinary tract symptoms as well as recurrent urinary tract infections. We discussed further treatment options and risks and benefits of these treatment options. She would like to continue with current management as she feels this has been significantly helpful. In office urinalysis results reviewed with the patient today. PVR 0 mL. All questions were answered. She otherwise offers no other issues or concerns at this time. [facility] Medical History History of coronary angiogram (~2017) Imbalance GERD (gastroesophageal reflux disease) IBS (irritable bowel syndrome) Back pain Spine disorder Edema Swelling Osteoporosis Arthritis Stroke COPD (chronic obstructive pulmonary disease) Hx of mammogram (~2023) Surgical History Hx of colonoscopy (~2021) H/O: hysterectomy Family History Mother Diabetes Thyroid disorder Maternal Grandmother Breast cancer Social History Household Members: None Both parents involved: No Caregiver staying overnight: No Housing: Apartment Are you a primary veterinarian laboratory animal care to a significant other at home: No Do you presently have visiting nurse or other home services: Yes (3 x a week) 75 years or older and lives alone: No Alcohol intake: never Patient Tobacco Use Status: Former Tobacco user Cigarette Packs Per Day: 2 Years Smoked: 48 e-Cigarette/Vaping Use: Never Used Second Hand Smoke Exposure: No Current occupational status: retired Cognitive needs: No Hearing needs: No Vision needs: Yes (wear glasses) Review of Systems Const All systems reviewed & are unremarkable except as noted in HPI and below Physical Exam Const General: cooperative, comfortable, no acute distress, well developed, alert and awake Orientation/consciousness: patient oriented x3 Limitations: ambulation with walker HEENT Head: Yes normal to inspection, Yes normocephalic and Yes atraumatic Ears: hearing grossly normal bilaterally Eyes General: appearance normal, both eyes and all related structures Neck Neck: Yes normal visual inspection and Yes trachea midline Chest Chest palpation & inspection: normal inspection of the chest Resp Effort & Inspection: normal respiratory effort and able to speak in complete sentences Cardio Rate: regular rate GI Inspection: Yes normal to inspection General: Yes no CVA tenderness Back/Spine/Pelvis Back: no CVA tenderness Skin General skin exam: no rashes or lesions noted Neuro General: patient oriented x3 Extrem General: Yes normal to inspection Psych Appearance: grossly normal and well kempt Mental Status: mental status grossly normal Speech and movement: Normal speech and movement present and Clear speech present Affect: normal affect Attitude: cooperative Thought process: Normal thought process present Thought content: Normal thought content present Insight: Fair insight present (Psych) Judgement: Fair judgement present (Psych) Office Procedures Post Void Residual Post Residual Void Post Void Residual (PVR): 0 [id number] Void Residual by ultrasound Results AMB Urinalysis, Automated UA Leukoctes 125 Yvonne/uL Last Edit by MIKE Richmond on 02/13/25 12:55 UA Nitrite Last Edit by MIKE Richmond on 02/13/25 12:55 UA Urobilinogen 0.2 mg/dL Last Edit by MIKE Richmond on 02/13/25 12:55 UA Protein 15 mg/dL Last Edit by MIKE Richmond on 02/13/25 12:55 UA pH 7.0 Last Edit by MIKE Richmond on 02/13/25 12:55 UA Blood 0 Yinka/uL Last Edit by MIKE Richmond on 02/13/25 12:55 UA Specific [place] 1.015 Last Edit by MIKE Richmond on 02/13/25 12:55 UA Ketone Last Edit by MIKE Richmond on 02/13/25 12:55 UA Bilirubin 0 mg/dL Last Edit by MIKE Richmond on 02/13/25 12:55 UA Glucose 0 mg/dL Last Edit by MIKE Richmond on 02/13/25 12:55 Results Reviewed Results Reviewed: Laboratory Last Values Urine pH (Auto) 7.0 02/13/25 12:54 Specific [place] (Auto) 1.015 02/13/25 12:54 Urine Protein (Auto) 15 mg/dL 02/13/25 12:54 Glucose (UA)(Auto) 0 mg/dL 02/13/25 12:54 Urine Blood (Auto) 0 Yinka/uL 02/13/25 12:54 Urine Bilirubin (Auto) 0 mg/dL 02/13/25 12:54 Urine Urobilinogen (Auto) 0.2 mg/dL 02/13/25 12:54 Leukocyte Esterase (Auto) 125 Yvonne/uL 02/13/25 12:54 Date of Service: 01/28/25 Procedure(s): US retroperitoneal comp Findings: Right kidney normal size and echotexture, 9.1 x 4.8 x 4.6 cm length. No hydronephrosis, mass or calculus. Normal color flow. Left kidney normal size and echotexture, 10.2 x 5.9 x 4.9 cm in length. Caliectasis noted, renal pelvis is not dilated, no calculus or mass. Normal color flow. Urinary bladder is unremarkable. Prevoid volume 183 mL. Postvoid volume 21 mL. Ureteral jets are visualized bilaterally Impression: 1. No acute finding. 2. Left renal caliectasis. Assessment & Plan Assessment & Plan (1) Urinary incontinence, mixed: Comment: [facility] URO Code(s): N39.46 - Mixed incontinence Category: Medical (2) Recurrent UTI: Comment: [facility] URO Code(s): N39.0 - Urinary tract infection, site not specified Category: Medical Plan In office urinalysis results reviewed with the patient today; as noted above. PVR 0 mL. Recent retroperitoneal ultrasound results reviewed with the patient today; as noted above. All questions were answered. Continue Estrace cream and Myrbetriq as discussed and prescribed. She currently denies any bothersome urinary issues or concerns. She reports be happy with current voiding parameters. Will continue with surveillance monitoring. Follow-up in 6 months with PVR; or sooner with any issues, concerns, and or questions. Orders: Orders AMB Post Void Residual by ultrasound Today N39.46 - Mixed incontinence Urine Culture Today A49.9 - Bacterial infection, unspecified, N39.0 - Urinary tract infection, site not specified AMB Urinalysis Automated Today Z13.9 - Encounter for screening, unspecified Medications: Changed From mirabegron ER (Myrbetriq) 25 mg PO DAILY 30 days 30 tabs 3RF R35.1 - Nocturia To mirabegron ER (Myrbetriq) 25 mg PO DAILY 90 tabs 3RF 90 days R35.1 - Nocturia Refilled estradiol 0.01%(0.1mg/gram) Apply pea-sized to urethra daily x1 month and then 3 times per week thereafter 42.5 grams 3RF 90 days N39.0 - Urinary tract infection, site not specified, N95.2 - Postmenopausal atrophic vaginitis Patient Instructions: The patient had an opportunity to ask questions regarding the treatment plan. All questions were answered. Physical exam, labs, and imaging were discussed and reviewed in detail. As well as risks, benefits, and discussion of treatment choices. No major barriers to understanding were identified. The patient expressed understanding and agreement with the above treatment plan. The patient was made aware they should contact our office by phone for worsening of their current condition, the appearance of new symptoms, or with any questions or concerns. Compliance is encouraged with any medications and follow up testing that is ordered. It is a privilege to be allowed the opportunity to participate in? your urological care.? Again, if you have any questions or concerns If you have any questions or concerns please do not hesitate to contact me. The office is [phone]. This note is constructed using voice recognition software. While every effort has been made to ensure accuracy audit intern errors may have been included. Yours sincerely, ROD Salinas Coding Level of Care Code Est Pt Level 3 (07332) Diagnoses Urinary incontinence, mixed N39.46 Recurrent UTI N39.0 CPT Codes Post Residual Void - PVR CPT Code: 03662-[id number] Void Residual by ultrasound ([id number])
== END 2025-02-13 13:25 | disposition home or self-care (01) ==
LOC: HO.HUSH 12:36
PROVIDERS: PCP Nurse Practitioner Family; Visit Provider Nurse Practitioner Family
DX: N39.46 Mixed incontinence (principal); N39.0 Urinary tract infection, site not specified; Z13.9 Encounter for screening, unspecified
CPT/HCPCS: 99213

== ENCOUNTER 2025-02-13 12:35 | Outpatient (REF) | payer MEDICARE, SELFPAY | END 2025-02-13 12:36 | disposition home or self-care (01) | LOC: HO.LAB 12:35 | PROVIDERS: PCP Nurse Practitioner Family; Visit Provider Nurse Practitioner Family | DX: N39.46 Mixed incontinence (principal); N39.0 Urinary tract infection, site not specified; A49.9 Bacterial infection, unspecified; Z13.89 Encounter for screening for other disorder; Z79.899 Other long term (current) drug therapy | CPT/HCPCS: 51798; 81003; 87086; 99212 ==

== ENCOUNTER 2025-04-30 09:57 | Outpatient (AMB) | payer MEDICARE, SELFPAY ==
--- NOTE | 2025-04-30 09:58 | A.OFFPC_ITS ---
Vital Signs 3 04/30/25 10:06 Height 5 ft 3 in Weight 145 lb 2 oz BMI 25.7 BP 135/65 Blood Pressure Location Lt brachial Position Sitting Respiration 16 Pulse 68 Pulse Source Pulse Oximeter Temp 97.8 F Temp Source Oral Pulse Oximetry (%) 97 Oxygen Delivery Method Room Air Intake Visit Reasons: Cataract extractions with Intraocular lens Intake Note: patient here for cataract extractions with intraocular lens Principal Administrative Clerk Required: No Is last menstrual period known: No Post menopausal: No Patient : No Allergies atorvastatin Allergy (Severe, Verified 04/30/25 10:01) Fainting ciprofloxacin Allergy (Severe, Verified 04/30/25 10:01) Fainting dicyclomine Allergy (Severe, Verified 04/30/25 10:01) Anaphylaxis morphine Allergy (Severe, Verified 04/30/25 10:01) Fainting oxycodone Allergy (Severe, Verified 04/30/25 10:01) Itching sertraline Allergy (Severe, Verified 04/30/25 10:01) Itching acetaminophen (From Percocet) Allergy (Verified 04/30/25 10:01) Vomiting bee stings Allergy (Severe, Uncoded 04/30/25 10:01) Swelling Tobacco use date assessed: 04/30/25 Fall risk assessment: No Falls in past year Last assessed Fall Risk: 04/30/25 Dental Screening Dental Screen Date: 04/30/25 Did you have a dental visit in the last 12 months?: No Did you have a dental problem in the last 6 months where you did not have access to dental care?: No Was dental information given to patient?: Patient has dentist HPI HPI Comments 2 History of Present Illness0 Details 69 y/o F with HLD, GERD, COPD/Emphysema, GERD, chronic lumbar radiculopathy, hiatal hernia with esophagitis, Hx of PUD, AVI, Former smoker, bilat pulm nodules, mild CAD, osteoporosis, recurrent UTI SurgHx: coronary angiogram 2018, partial hysterectomy still has cervix and ovaries FHx: Y SocHx: Lives alone, dtr is point of contact; has services in the home Health Maintenance: Colon: 2021 + polyp, repeat 5 years EGD 2022 hiatal hernia, esophagitis Mammo 11/2023 abnormal Dx L normal, repeat 1 year, New order placed for C DEXA : ordered today; hx of osteoporosis PAP SKEIN SPOOLER exam 12/2022 Vaccines: Shingles, PCV x2, Tdap 2022, Flu 2024 AAA screen: NA EKG: done today WNL Lung ca screening done by [facility] Echo 2023 EF 60-65%, mild calcification of AV, [place] of Care: Pulm Dr Solano GI Dr Mercado Uro [facility] Cards Dr Velásquez not active SKEIN SPOOLER Here today for preoperative clearance. Surgery Type: cataract extraction with intraocular lense implants Anesthesia Type: Conscious seddation/topical Surgeon: Dr Imtiaz Victoria Date: 05/12/25 and 05/21/25 Any past surgical procedures: Yes see above Any complications from anesthesia or in post-op period: Denies ASA or NSAID Use: Denies Current smoker: Denies Alcohol use: Denies Drug use: Denies METs: > 4 climb flight of stairs, golf, walk, yardwork Medical history: Asthma No COPD Yes Obesity BMI 25.7 Diabetes No ME < 6 weeks, unstable angina, CHF, severe valve disease: No ROS: - General: Denies fever or chills. - Cardiovascular: Denies chest pain. - Respiratory: Reports breathing has bee n okay. Denies cough. - Endocrine: Denies diabetes. - Immunologic: Reports feeling sick for three days after receiving the trivalent influenza vaccine. Physical Exam General: Well developed, well nourished, in no acute distress. Appears stated age. Head: Normocephalic, atraumatic. Eyes: Pupils are equal, round and reactive to light and accommodation. Conjunctivae are clear. Vision grossly normal. Pharynx: Clear Lungs: Clear to auscultation bilaterally. No rales, rhonchi or wheeze noted. Good air flow in all valero. Heart: Regular rate and rhythm. No murmurs, click, rubs or gallops are noted. Bilat feet cool to touch. Skin intact. Her L foot and leg are so sensitive to even the slightest touch she becomes tearful. I had a hard time appreciating her pulses on this side d/t this, she could not tolerate. PP on R are present but dim. Nails intact. Strengh 4/5 LLE and LUE, states baseline s/p stroke Extremities: No clubbing, cyanosis nor edema is noted. Neurologic: Cranial Nerves 2-12 intact. Skin: No rashes, ulcers, or lesions noted. Turgor is good. Skin color is good. Hair and nails are without abnormalities. Psych: Normal eye contact, affect and mood appropriate, and normal interactions. Patient is alert and appropriate to context. Mood appears good Testing EKG 12/04/24 WNL Labs 10/15/24 WNL RCRI is Class 0 Risk Stratification: 0.5% Medical Decision Making The patient is a 69-year-old female who presents for preoperative clearance for bilateral cataract surgeries. She has no acute complaints and reports a history of prior surgeries without complications related to anesthesia or postoperative issues. She denies any significant cardiac or respiratory symptoms. Her physical examination is unremarkable, with good vital signs. Given her excellent health status and lack of comorbidities, she is at a very low risk for complications and is cleared for both procedures. We discussed her recent adverse reaction to the trivalent influenza vaccine, and she has been advised to avoid this specific formulation in the future. Plan: - The patient is cleared to proceed with both cataract surgeries as she is at very low risk for complications. - The preoperative clearance form will b e faxed to Dr. Victoria. - A regular follow-up is scheduled for Anuradha fernández. Patient Instructions: - You are approved to have both of your cataract surgeries. - You have a very low risk of complicati ons because you take good care of yourself. - Next year, when you get your flu shot, tell the pharmacy you do not want the same type you had this year. - I will see you for your regular follow -up appointment in June Aspirin and NSAIDS should be discontinued one week before surgery to prevent excessive bleeding. If you are a smoker, there is increase risk of post surgical complications. Cessation is encouraged. Follow up with surgeon and all recommendations pre and post operatively. [facility] Medical History History of coronary angiogram (~2017) Imbalance GERD (gastroesophageal reflux disease) IBS (irritable bowel syndrome) Back pain Spine disorder Edema Swelling Osteoporosis Arthritis Stroke COPD (chronic obstructive pulmonary disease) Hx of mammogram (~2023) Surgical History Hx of colonoscopy (~2021) H/O: hysterectomy Family History Mother Diabetes Thyroid disorder Maternal Grandmother Breast cancer Social History Household Members: None Both parents involved: No Caregiver staying overnight: No Housing: Apartment Are you a primary manager critical care unit to a significant other at home: No Do you presently have visiting nurse or other home services: Yes (3 x a week) 75 years or older and lives alone: No Alcohol intake: never Patient Tobacco Use Status: Former Tobacco user Cigarette Packs Per Day: 2 Years Smoked: 48 e-Cigarette/Vaping Use: Never Used Second Hand Smoke Exposure: No service: No Current occupational status: retired Current occupational exposures/hazards: No Cognitive needs: No Hearing needs: No Vision needs: Yes (wear glasses) Questionnaire Thrive Questionnaire Date Thrive assessed: 10/15/24 AVI-7 AMB Questionnaire AVI-7 Date AVI - 7 assessed: 10/15/24 Source: Developed by Drs. Presley Chaudhari, Rosario Don, Sergey Jimenez and colleagues, with an educational araceli from [employer]. Physical exam (Primary Care) Vital Signs: Last Vital Signs Temp 97.8 F 04/30/25 10:06 Pulse 68 04/30/25 10:06 Resp 16 04/30/25 10:06 BP 135/65 04/30/25 10:06 Pulse Ox 97 04/30/25 10:06 Oxygen Delivery Method Room Air 04/30/25 10:06 BMI result Body Mass Index 25.7 Tobacco/Smoking Status: Tobacco use Status Tobacco use date assessed 04/30/25 04/30/25 10:08 Patient Tobacco Use Status Former Tobacco user 04/30/25 10:02 e-Cigarette/Vaping Use Never Used 04/30/25 10:02 Thrive Assessment: Date of Thrive Assessment Date Thrive assessed 10/15/24 04/30/25 10:02 Results Reviewed Results Reviewed: RUN: 04/30/25 1003 PAGE 1 [facility] [address] [place] [id number] Supervisor Evaporator: Mason Shanks M.D. Specimen Inquiry Name: Regla Don Age/Sex: 69/F : 1955 Unit#: [id number] Attend Dr: Jody LopesPColette Re10/15/24 Status: DEP REF Location: .WFDLDS D isch: SPEC : [id number] EDWARD: 10/15/24 STATUS: COMP REQ : [id number] RECD: 10/15/24-[address]: Jody Lopes [facility] COMP: 10/15/24-1513 ENTERED: 10/15/24-[address]: ORDERED: CMP, IRON PROF, Ferritin, Lipid Panel, Vitamin D 25-OH, TSH Rflx Test Result Flag Reference Sodium 138 135-145 mmol/L Potassium 4.4 3.3-5.1 mmol/L Slight Hemolysis.Interpret result with caution. CL 105 96-108 mmol/L CO2 25 22-29 mmol/L Gap 12 12-20 BUN 14 9-16 mg/dL Creat 0.72 0.5-1.4 mg/dL eGFR > 60 Chronic Kidney Disease: Estimated GFR < 60 mL/min/1.73m2 Severe Kidney Disease: Estimated GFR < 15 mL/min/1.73m2 Glucose, Random 91 60-115 mg/dL CA 9.4 8.4-10.2 mg/dL Iron 81 30-160 mcg/dL Slight Hemolysis.Interpret result with caution. TIBC 258 228-428 mcg/dL Saturation 31 15-50 % UIBC 177 ug/dL Ferritin 50 10-250 ng/mL Total Bili 0.3 0.0-1.0 mg/dL AST (GOT) 27 5-31 U/L Slight Hemolysis.Interpret result with caution. ALT (GPT) 14 0-31 U/L Protein, Total 7.0 6.5-8.0 g/dL Alb 4.2 3.5-5.0 g/dL Triglyceride 97 <150 mg/dL Desirable Triglyceride: less than 150 mg/dL Borderline High Triglyceride 150-199 mg/dL High Triglyceride: 200-499 mg/dL Very High Triglyceride: greater than or equal to 5OO mg/dL Cholesterol 253 H <200 mg/dL Desirable Cholesterol: less than 200 mg/dL Borderline High Cholesterol: 200-239 mg/dL High Cholesterol: greater than 239 mg/dL LDL Calculated 173 H <100 mg/dL Desirable LDL: less than 100 mg/dL Near Optimal/Above Optimal LDL: 110-129 mg/dL Borderline High LDL: 130-159 mg/dL High LDL: 160-189 mg/dL Very High LDL: greater than or equal to 190 mg/dL HDL 61 >40 mg/dL Desirable HDL: greater than 40 mg/dL Note: This HDL assay may give artificially low results in patients with liver disease. Alk Phos 77 39-117 U/L Vitamin D 25-OH 29.3 L >30 ng/mL Health Based Reference Values* < 20 ng/mL Deficient 20-30 ng/mL Insufficient > 30 ng/mL Sufficient *Kyra LUND. N Engl J Med. 2007;357:266-280 There is no well-established upper level of normal vitamin D levels. Some laboratories use 50 ng/mL as an upper limit of normal. However, toxicity is patient-dependent and may occur at any level. Careful correlation with the patient's presentation is necessary and, if there is concern for vitamin D toxicity, treatment should be considered irrespective of the serum level. Care must be taken in interpreting Vitamin D results from different laboratories and methodologies. Published data demonstrated that results from patients undergoing hemodialysis may show a negative bias when tested with various automated 25-OH vitamin D assays when compared to LC-MS/MS. When testing samples from patients whose predominant form of Vitamin D is Vitamin D2, such as patients receiving Vitamin D2 supplementation, results that are subtherapeutic should be confirmed with another method such as LC-MS/MS. TSH 0.74 0.32-4.0 uIU/mL RUN: 04/30/25 1004 PAGE 1 [facility] [address] [place] [phone] Supervisor Evaporator: Mason Shanks M.D. Specimen Inquiry Name: Regla Don Age/Sex: 69/F : 1955 [id number]#: [id number] Attend Dr: Jody LopesPColette Re10/15/24 Status: DEP REF [facility] D isch: SPEC : [id number] EDWARD: 10/15/24 STATUS: COMP REQ : [id number] RECD: 10/15/[address]: Jody Lopes [facility] COMP: 10/15/24 ENTERED: 10/15/[address]: ORDERED: CBC No Diff Test Result Flag Reference WBC 9.6 4.8-10.8 X10*3/uL RBC 4.67 4.20-5.50 X10*6/uL HGB 13.5 12.0-16.0 g/dl HCT 42.7 37.0-47.0 % MCV 91.4 80.0-98.0 fL MCH 28.9 27.0-33.0 pg MCHC 31.6 31.0-35.0 g/dl RDW 13.4 11.0-16.0 % PLT 428 H 160-400 X10*3/uL MPV 10.2 9.4-12.3 fL NRBC Pct Auto 0.0 0.0-0.2 /100WBC NRBC Abs Auto 0.000 0.0-0.012 X10*3/uL END OF REPORT Coding Level of Care Code Est Pt Level 4 (34739) Add On Problem Visit Only Diagnoses Pre-op evaluation Z01.818 Cataract, bilateral H26.9 Coronary artery disease involving [place] coronary artery of [place] heart without angina pectoris I25.10 Associated angina: without angina Coronary Disease-Associated Artery/Lesion type: [place] artery [place] vs. transplanted heart: [place] heart Assessment & Plan Assessment & Plan (1) Pre-op evaluation: Code(s): Z01.818 - Encounter for other preprocedural examination Plan: - The patient is cleared to proceed with both cataract surgeries as she is at very low risk for complications. (2) Cataract, bilateral: Code(s): H26.9 - Unspecified cataract Category: Medical (3) CAD (coronary artery disease): Comment: noted on CT of the chest negative coronary angio 2018 managed by Cards Code(s): I25.10 - Atherosclerotic heart disease of [place] coronary artery without angina pectoris Category: Medical Qualifiers: Associated angina: without angina Coronary Disease-Associated Artery/Lesion type: [place] artery [place] vs. transplanted heart: [place] heart Qualified Code(s): I25.10 - Atherosclerotic heart disease of [place] coronary artery without angina pectoris Plan .
[2025-04-30 10:06] VITALS: BP 135/65; PULSE 68; RESP 16; TEMP 36.6; O2SAT 97; BMI 25.7
== END 2025-04-30 10:18 | disposition home or self-care (01) ==
LOC: HO.HMCFM 09:58
PROVIDERS: PCP Nurse Practitioner Family; Visit Provider Nurse Practitioner Family
DX: Z01.818 Encounter for other preprocedural examination (principal); H26.9 Unspecified cataract; I25.10 Atherosclerotic heart disease of native coronary artery without angina pectoris

== ENCOUNTER → 2025-04-30 09:57 | Outpatient (BNVA) | payer MEDICARE, SELFPAY | PROVIDERS: PCP Nurse Practitioner Family; Visit Provider Nurse Practitioner Family | DX: Z01.818 Encounter for other preprocedural examination (principal); I25.10 Atherosclerotic heart disease of native coronary artery without angina pectoris; H26.9 Unspecified cataract | CPT/HCPCS: 99212 ==